=== PATIENT | male | born 1960 | race African-American/Black ===

== ENCOUNTER → 2016-06-03 | Outpatient (CLI) | payer OTHER ==
[~2016-06-03] MED LIST: ALBUTEROL SULFATE 0.083% NEB 2.5 MG/3 ML AMPUL NEB ONE
--- NOTE | 2016-06-05 09:20 | PULMONARY FUNCTION TEST ---
DATE OF SERVICE: 06/03/2016 THE VITAL CAPACITY IS SLIGHTLY DECREASED. THE EXPIRATORY FLOW RATES ARE MODERATELY DECREASED. THE FEV1/VC IS 54%, PREDICTED: 80% AFTER BRONCHODILATOR, EXPIRATORY FLOW RATES SHOW SIGNIFICANT IMPROVEMENT. IMPRESSION: GOOD PATIENT EFFORT. MODERATE OBSTRUCTIVE DEFECT. CC: JAMIE HERNANDEZ MD > [place]
== END ==
LOC: RT 13:01
PROVIDERS: ATTEND Family Medicine
DX: J44.9 Chronic obstructive pulmonary disease, unspecified (principal)
CPT/HCPCS: 94060; 94640; 94760

== ENCOUNTER 2016-11-27 09:16 | Emergency (ER) | payer MEDICAID, OTHER ==
--- NOTE | 2016-11-27 09:33 | ER Document Report ---
ED General - General Stated Complaint: CHEST PAIN, SHORTNESS OF BREATH Time Seen by Provider: 11/27/16 09:23 Mode of Arrival: Medic Information source: Patient Notes: 56-year-old male presents with complaints of sudden shortness of breath difficulty breathing, patient notes he fell on a lawnmower yesterday, went to the [facility] where he was found to be satting 77% on room air TRAVEL OUTSIDE OF THE [place] IN LAST 30 DAYS: No - HPI Onset: Yesterday Onset/Duration: Sudden Quality of pain: No pain Severity: Mild Pain Level: 1 Associated symptoms: Shortness of breath Exacerbated by: Denies Relieved by: Denies Similar symptoms previously: No Recently seen / treated by doctor: Yes - Related Data Allergies/Adverse Reactions: No Known Allergies Allergy (Verified 10/17/15 13:32) Past Medical History - Social History Smoking Status: Current Every Day Smoker Cigarette use (# per day): Yes Chew tobacco use (# tins/day): No Smoking Education Provided: Yes - Patient counselled regarding cessation for 4 minutes Family History: Reviewed & Not Pertinent - Past Medical History Cardiac Medical History: Reports: Hx Hypertension Pulmonary Medical History: Reports: Hx Asthma, Hx COPD, Hx Pneumonia GI Medical History: Reports: Hx Irritable Bowel Past Surgical History: Reports: Hx Abdominal Surgery - Immunizations Hx Diphtheria, Pertussis, Tetanus Vaccination: No Hx Pneumococcal Vaccination: 03/22/12 Review of Systems - Review of Systems Notes: REVIEW OF SYSTEMS: CONSTITUTIONAL : Denies fever, chills, or sweats. Denies recent illness. EENT: Denies eye, ear, throat, or mouth pain or symptoms. Denies nasal or sinus congestion or discharge. Denies throat, tongue, or mouth swelling or difficulty swallowing. CARDIOVASCULAR: Shortness of breath RESPIRATORY: Admits to chest pain GASTROINTESTINAL: Denies abdominal pain or distention. Denies nausea, vomiting , or diarrhea. Denies blood in vomitus, stools, or per rectum. Denies black, tarry stools. Denies constipation. GENITOURINARY: Denies difficulty urinating, painful urination, burning, frequency, blood in urine, or discharge. MUSCULOSKELETAL: Denies back or neck pain or stiffness. Denies joint pain or swelling. SKIN: Denies rash, lesions or sores. HEMATOLOGIC : Denies easy bruising or bleeding. LYMPHATIC: Denies swollen, enlarged glands. NEUROLOGICAL: Denies confusion or altered mental status. Denies passing out or loss of consciousness. Denies dizziness or lightheadedness. Denies headache. Denies weakness or paralysis or loss of use of either side. Denies problems with gait or speech. Denies sensory loss, numbness, or tingling. Denies seizures. PSYCHIATRIC: Denies anxiety or stress. Denies depression, suicidal ideation, or homicidal ideation. ALL OTHER SYSTEMS REVIEWED AND NEGATIVE. Dictation was performed using [employer] voice recognition software PHYSICAL EXAMINATION: GENERAL: Well-appearing, well-nourished and in no acute distress. HEAD: Atraumatic, normocephalic. EYES: Pupils equal round and reactive to light, extraocular movements intact, sclera anicteric, conjunctiva are normal. ENT: Nares patent, oropharynx clear without exudates. Moist mucous membranes. NECK: Normal range of motion, supple without lymphadenopathy LUNGS: Decreased breath sounds right upper lobe HEART: Regular rate and rhythm without murmurs ABDOMEN: Soft, nontender, nondistended abdomen. No guarding, no rebound. No masses appreciated. Musculoskeletal: Normal range of motion, no pitting or edema. No cyanosis. NEUROLOGICAL: Cranial nerves grossly intact. Normal speech, normal gait. Normal sensory, motor exams PSYCH: Normal mood, normal affect. SKIN: Warm, Dry, normal turgor, no rashes or lesions noted. Physical Exam - Vital signs Vitals: Pulse Ox 100 11/27/16 09:23 Course - Re-evaluation Re-evalutation: 11/27/16 09:32 Given 3 nitroglycerin patient for possible chf exacerbationon nonrebreather and is satting in the 90s now, 11/27/16 13:03 ct was consistent with emphysema pt was weaned off nonrebreather to initially nasal cannula and then was taken off of this completely 11/27/16 13:35 Was ambulated and satting 94% at the lowest. Patient also notes that he had a fishbone that irritated his throat last week and would like some medication for this we will start him on some Pepcid and anti-inflammatory will give him steroids and albuterol inhaler patient has been given strict return precautions since he had such a poor presentation initially Family member agrees with this plan After performing a Medical Screening Examination, I estimate there is LOW risk for ACUTE CORONARY SYNDROME, RESPIRATORY FAILURE, SEPSIS OR MENINGITIS, thus I consider the discharge disposition reasonable. I have reevaluated this patient multiple times and no significant life threatening changes are noted. The patient and I have discussed the diagnosis and risks, and we agree with discharging home with close follow-up. We also discussed returning to the Emergency Department immediately if new or worsening symptoms occur. We have discussed the symptoms which are most concerning (e.g., changing or worsening pain, trouble swallowing or breathing, neck stiffness, fever) that necessitate immediate return. - Vital Signs Vital signs: Temp Pulse Resp BP Pulse Ox 15 116/88 H 100 11/27/16 12:46 11/27/16 12:46 11/27/16 12:46 - Laboratory Result Diagrams: 11/27/16 09:30 11/27/16 10:25 Laboratory results interpreted by me: 11/27/16 11/27/16 09:30 10:25 RDW 14.6 H Potassium 5.2 H Carbon Dioxide 21 L BUN 28 H Creatinine 1.47 H Est GFR (Non-Af Amer) 49 L Creatine Kinase 222 H Discharge - Discharge Clinical Impression: COPD exacerbation, Encounter for smoking cessation counseling Condition: Stable Disposition: HOME, SELF-CARE Instructions: Chronic Obstructive Lung Disease ([facility]), Stop Smoking ([facility]) Additional Instructions: Follow up with your physician tomorrow for further care or return to the ED IMMEDIATELY if symptoms worsen or new concerns occur. If you cannot afford to follow up with your primary care physician a list of low cost clinics have been provided at the end of your discharge papers as well. Prescriptions: Famotidine [Pepcid 20 mg Tablet] 20 mg PO BID #30 tablet Naproxen 500 mg PO BID #20 tablet Prednisone [Deltasone 20 mg Tablet] 3 tab PO DAILY 5 Days
--- NOTE | 2016-11-27 09:44 | RADIOLOGY REPORT (SQ) ---
EXAM DESCRIPTION: CHEST SINGLE VIEW COMPLETED DATE/TIME: 11/27/2016 9:32 am REASON FOR STUDY: er 9 diff breathing COMPARISON: CT angio chest 06/17/2014 Chest films 12/10/2014, 02/11/2015 EXAM PARAMETERS: NUMBER OF VIEWS: One view. TECHNIQUE: Single frontal radiographic view of the chest acquired. RADIATION DOSE: NA LIMITATIONS: None. FINDINGS: LUNGS AND PLEURA: Obliquely oriented faint linear density at the right lung apex could be a focal scar. A tiny apical full or bleb could be present. Apical pneumothorax could not be exclude d. There is left apical pleural-parenchymal scarring. Review of prior CT 06/17/2014 demonstrated a thin walled cavity at the left lung apex. Follow-up CT recommended. Remainder of the lungs are hyperinflated and hyperlucent and free of focal infiltrates. No pleural e ffusion. MEDIASTINUM AND HILAR STRUCTURES: No masses. Contour normal. HEART AND VASCULAR STRUCTURES: Heart normal in size. Normal vasculature. BONES: No acute findings. HARDWARE: None in the chest. OTHER: Findings discussed with Dr. Bansal. IMPRESSION: Biapical pleural-parenchymal scarring. Right apical pneumothorax could not be excluded. Prior CT 06/17/2014 demonstrated a thin walled cavity in the left lung apex. Follow-up CT recommend ed. No acute infiltrates. TECHNICAL DOCUMENTATION: JOB ID: [id number]
[2016-11-27 09:45] LABS: ABSOLUTE BASOPHILS # (AUTO) 0.1 10^3/uL (0.0-0.2); ABSOLUTE EOSINOPHILS # (AUTO) 0.3 10^3/uL (0.0-0.6); BASOPHILS % (AUTO) 0.9 % (0-2); EOSINOPHILS % (AUTO) 3.5 % (0-6); HEMATOCRIT 42.6 % (37.9-51.0); HEMOGLOBIN 13.9 g/dL (13.5-17.0); HGB HCT DIFFERENCE -0.9; MEAN CORPUSCULAR HGB CONC 32.7 g/dL (32.0-36.0); MEAN CORPUSCULAR VOLUME 89 fl (80-97); RED CELL DISTRIBUTION WIDTH 14.6 % (11.5-14.0); SEGMENTED NEUTROPHILS % (AUTO) 63.6 % (42-78); WHITE BLOOD COUNT 9.5 10^3/uL (4.0-10.5)
--- NOTE | 2016-11-27 10:31 | RADIOLOGY REPORT (SQ) ---
EXAM DESCRIPTION: CTA CHEST COMPLETED DATE/TIME: 11/27/2016 9:48 am REASON FOR STUDY: sob COMPARISON: None. TECHNIQUE: CT scan of the chest performed using helical scanning technique with dynamic intravenous contrast injection. Images reviewed with lung, soft tissue and bone windows. Reconstructed coronal and sagittal MPR images reviewed. Additional 3 dimensional post-processing performed to develop Maximal Intensity Projection images (MO P). All images stored on PACS. All CT scanners at this facility use dose modulation, iterative reconstruction, and/or weight based d osing when appropriate to reduce radiation dose to as low as reasonably achievable (ALARA). [facility]: Dose Right [facility]: CareDose [facility]: Dose Right [facility]: Teradose 4D [facility]: [employer] CONTRAST TYPE AND DOSE: contrast/concentration: Isovue 370.00 mg/ml; Total Contrast Delivered: 62.0 ml; Total Saline Delivered: 80.0 ml RENAL FUNCTION: Testis not performed by order of the emergency room physician. RADIATION DOSE: 30.85 . LIMITATIONS: None. FINDINGS: LUNGS AND PLEURA: Extensive emphysematous changes seen in the upper lobes including centri lobular changes and paraseptal changes. There is pleural/parenchymal scarring in the left apex. The re is no pulmonary infiltrate or pleural effusion. There is no mass. AORTA AND GREAT VESSELS: No aneurysm or dissection. HEART: No pericardial effusion. PULMONARY ARTERIES: No emboli visualized in the main pulmonary arteries or the segmental branches. HILAR AND MEDIASTINAL STRUCTURES: No identified masses or abnormal nodes. HARDWARE: None in the chest. UPPER ABDOMEN: No significant findings. Limited exam. THYROID AND OTHER SOFT TISSUES: No masses. No adenopathy. BONES: No acute or significant finding. 3D MIPS: Confirm above findings. OTHER: No other significant finding. IMPRESSION: 1. There is no evidence of pulmonary emboli. 2. There is pulmonary emphysema and there is pleural/parenchymal scarring as described. TECHNICAL DOCUMENTATION: JOB ID: [id number] Quality ID # [id number]: Final reports with documentation of one or more dose reduction techniques (e.g., Au tomated exposure control, adjustment of the mA and/or kV according to patient size, use of iterative reconstruction technique) 2010 [employer]- All Rights Reserved
[2016-11-27] MEDS ORDERED: IPRATROPIUM/ALBUTEROL 0.5-2.5 MG/3 ML AMPUL NEB ONE ×2 (10:35)
[2016-11-27 11:07] LABS: ALANINE AMINOTRANSFERASE 28 U/L (21-72); ALBUMIN 4.2 g/dL (3.5-5.0); ALKALINE PHOSPHATASE 83 U/L (38-126); ANION GAP 13 (5-19); ASPARTATE AMINO TRANSFERASE 33 U/L (17-59); BILIRUBIN,DIRECT 0.4 mg/dL (0.0-0.4); BLOOD UREA NITROGEN 28 mg/dL (7-20); CALCIUM 9.3 mg/dL (8.4-10.2); CARBON DIOXIDE 21 mmol/L (22-30); CHLORIDE 106 mmol/L (98-107); CREATINE KINASE 222 U/L (55-170); CREATININE RESULT 1.47 mg/dL (0.52-1.25); GLUCOSE 83 mg/dL (75-110); POTASSIUM 5.2 mmol/L (3.6-5.0); SODIUM 140.2 mmol/L (137-145)
[2016-11-27 11:25] LABS: CREATINE KINASE MB 1.65 ng/mL (<4.55)
[2016-11-27 11:27] LABS: TROPONIN I < 0.012 ng/mL
[2016-11-27 13:59] VITALS: BP 138/93
[2016-11-27] MEDS ORDERED: ALBUTEROL SULFATE HFA (90 MCG/PUFF) 8 GM MDI (1 MDI/ER DISP) IH SCH (14:00)
--- NOTE | 2016-11-27 20:54 | EKG REPORT ---
SEVERITY:- ABNORMAL ECG - SINUS RHYTHM ATRIAL PREMATURE COMPLEX BORDERLINE LEFT AXIS DEVIATION CONSIDER ANTEROSEPTAL INFARCT NONSPECIFIC T ABNORMALITIES, LATERAL LEADS : Confirmed by: Wanda Chapa 27-Nov-2016 20:53:39
== END 2016-11-27 14:01 | disposition home or self-care (01) ==
LOC: ER 09:16
DX: J44.1 Chronic obstructive pulmonary disease with (acute) exacerbation (principal); R06.02 Shortness of breath; R07.9 Chest pain, unspecified; R09.89 Other specified symptoms and signs involving the circulatory and respiratory systems; I10 Essential (primary) hypertension; F17.210 Nicotine dependence, cigarettes, uncomplicated; Z71.6 Tobacco abuse counseling
CPT/HCPCS: 93005; 99406; 94640; 99285; 36415; 82553; 82550; 85025; 80053; 84484; 71010; 71275; 93010; J3490; J7620

== ENCOUNTER → 2017-03-02 | Outpatient (CLI) | payer MEDICAID, OTHER ==
--- NOTE | 2017-03-02 14:38 | RADIOLOGY REPORT (SQ) ---
EXAM DESCRIPTION: CHEST PA/LAT COMPLETED DATE/TIME: 03/02/2017 2:17 pm REASON FOR STUDY: COUGH (R05), SOB (R06.02) COMPARISON: 11/27/2016 NUMBER OF VIEWS: Two view. TECHNIQUE: Frontal and lateral radiographic views of the chest acquired. LIMITATIONS: None. FINDINGS: LUNGS AND PLEURA: Possible increasing opacity left apex since the previous chest x-ray al though poorly defined. Mass not identified on the previous CT of 11/27/2016. Repeat non contrasted C T of the chest may be a consideration to exclude pathology developing at this level. Hyperinflation secondary to COPD again noted. No pleural effusions. MEDIASTINUM AND HILAR STRUCTURES: No masses or contour abnormalities. HEART AND VASCULATURE: Heart normal size. No evidence for failure. BONY STRUCTURES: No acute findings. HARDWARE: None. OTHER: No other significant finding. IMPRESSION: Possible increasing density left apex when compared to the previous chest x-ray of 2016. Mass or other pathology not identified on the CT of the chest performed at that time. Repeat non contrasted CT of the chest may be a consideration to exclude developing pathology since the previ ous examination. TECHNICAL DOCUMENTATION: JOB ID: [id number] [employer]- All Rights Reserved
== END ==
LOC: RAD 13:59
PROVIDERS: ATTEND Physician Assistant Surgical
DX: R05 Cough (principal); R06.02 Shortness of breath
CPT/HCPCS: 71020

== ENCOUNTER → 2017-03-08 | Outpatient (CLI) | payer MEDICAID, OTHER ==
--- NOTE | 2017-03-08 13:31 | RADIOLOGY REPORT (SQ) ---
EXAM DESCRIPTION: CT CHEST WITHOUT COMPLETED DATE/TIME: 03/08/2017 11:27 am REASON FOR STUDY: OTHER NONSPECIFIC ABN FINDING OF LUNG FIELD (R91.8), SOB (R06.02), COUGH (R R91.8 OTHER NONSPECIFIC ABNORMAL FINDING OF LUNG FIELD R06.02 SHORTNESS OF BREATH R05 COUGH COMPARISON: 11/27/2016 TECHNIQUE: CT scan performed of the chest without intravenous contrast. Images reviewed with lung, soft tissue and bone windows. Reconstructed coronal and sagittal MPR images reviewed. All images st ored on PACS. All CT scanners at this facility use dose modulation, iterative reconstruction, and/or weight based d osing when appropriate to reduce radiation dose to as low as reasonably achievable (ALARA). [facility]: Dose Right [facility]: CareDose [facility]: Dose Right [facility]: Teradose 4D [facility]: Smart [employer] RADIATION DOSE: Up-to-date CT equipment and radiation dose reduction techniques were employed. CTDIv ol: 5.4 mGy. DLP: 233 mGy-cm. mGy. LIMITATIONS: No technical limitations. FINDINGS: LUNGS AND PLEURA: Once again emphysematous changes are present. There is pleural/parenchy mal scarring in the left upper lobe. There is an 18 x 13 mm area of confluent density the left upper lobe seen best on image 13 series 4. On prior study this area has an appearance of somewhat thick-w alled pneumatocele. A 3 mm nodule is present on image 18 series 4 in the left upper lobe. HILAR AND MEDIASTINAL STRUCTURES: There are some nonspecific mediastinal nodes. HEART AND VASCULAR STRUCTURES: No aneurysm. No pericardial effusion. UPPER ABDOMEN: No significant findings. Limited exam. THYROID AND OTHER SOFT TISSUES: No masses. No adenopathy. BONES: No significant finding. HARDWARE: None in the chest. OTHER: No other significant findings. IMPRESSION: 1. Pulmonary emphysema. Pleural/ parenchymal scarring in the left upper lobe. 2. There is an area of confluent density as described. This may represent an infected pneumatocele. A developing mass cannot be excluded. Correlate clinically atypical infection. Consider PET-CT. 3. 3 left upper lobe nodule. TECHNICAL DOCUMENTATION: JOB ID: [id number] Quality ID # [id number]: Final reports with documentation of one or more dose reduction techniques (e.g., Au tomated exposure control, adjustment of the mA and/or kV according to patient size, use of iterative reconstruction technique) 2010 [employer]- All Rights Reserved
== END ==
LOC: RAD 10:12
PROVIDERS: ATTEND Internal Medicine Gastroenterology
DX: R91.8 Other nonspecific abnormal finding of lung field (principal); R06.02 Shortness of breath; R05 Cough; R63.4 Abnormal weight loss
CPT/HCPCS: 71250

== ENCOUNTER 2017-06-17 02:52 | Emergency (ER) | payer MEDICAID, OTHER ==
[2017-06-17] MEDS ORDERED: METHYLPREDNISOLONE INJ 125 MG/2 ML SDV ONE (03:04)
[2017-06-17] MEDS ORDERED: METHYLPREDNISOLONE INJ 125 MG/2 ML SDV IV ONE (03:04)
[2017-06-17] MEDS ORDERED: DIPHENHYDRAMINE HCL 50 MG/ML VIAL IV ONE (03:04)
[2017-06-17] MEDS ORDERED: FAMOTIDINE INJ/PF 20 MG/2 ML SDV IV ONE (03:05)
[2017-06-17] MEDS ORDERED: MAGNESIUM SULFATE/D5W 1 GM/100 ML RTUPB IV ONE (03:05)
[2017-06-17 03:14] LABS: ABSOLUTE NEUT (AUTO) 3.6 10^3/uL (1.7-8.2); BASOPHILS % (AUTO) 1.1 % (0-2); EOSINOPHILS % (AUTO) 6.6 % (0-6); HEMATOCRIT 39.6 % (37.9-51.0); HEMOGLOBIN 13.5 g/dL (13.5-17.0); MEAN CORPUSCULAR HEMOGLOBIN 29.7 pg (27.0-33.4); MEAN CORPUSCULAR HGB CONC 34.1 g/dL (32.0-36.0); MEAN CORPUSCULAR VOLUME 87 fl (80-97); MONOCYTES % (AUTO) 11.1 % (3-13); PLATELET COUNT 221 10^3/uL (150-450); RED BLOOD COUNT 4.55 10^6/uL (4.35-5.55); RED CELL DISTRIBUTION WIDTH 14.6 % (11.5-14.0); SEGMENTED NEUTROPHILS % (AUTO) 44.2 % (42-78); TOTAL CELLS COUNTED % (AUTO) 100 %; WHITE BLOOD COUNT 8.2 10^3/uL (4.0-10.5)
[2017-06-17 03:15] LABS: ABSOLUTE BASOPHILS # (AUTO) 0.1 10^3/uL (0.0-0.2); ABSOLUTE EOSINOPHILS # (AUTO) 0.5 10^3/uL (0.0-0.6); ABSOLUTE MONOCYTES (AUTO) 0.9 10^3/uL (0.1-1.4)
[2017-06-17] MEDS ORDERED: IPRATROPIUM/ALBUTEROL 0.5-2.5 MG/3 ML AMPUL NEB ONE (03:15)
[2017-06-17 03:30] LABS: ALANINE AMINOTRANSFERASE 24 U/L (21-72); ALBUMIN 4.5 g/dL (3.5-5.0); ALKALINE PHOSPHATASE 73 U/L (38-126); ANION GAP 12 (5-19); ASPARTATE AMINO TRANSFERASE 26 U/L (17-59); BILIRUBIN,TOTAL 0.3 mg/dL (0.2-1.3); BLOOD UREA NITROGEN 29 mg/dL (7-20); CALCIUM 9.8 mg/dL (8.4-10.2); CARBON DIOXIDE 25 mmol/L (22-30); CHLORIDE 105 mmol/L (98-107); GLUCOSE 97 mg/dL (75-110); SODIUM 141.8 mmol/L (137-145)
[2017-06-17 03:31] LABS: BILIRUBIN,DIRECT 0.3 mg/dL (0.0-0.4); TOTAL PROTEIN 7.9 g/dL (6.3-8.2)
--- NOTE | 2017-06-17 03:34 | ER Document Report ---
ED General - General Mode of Arrival: Ambulatory Information source: Patient TRAVEL OUTSIDE OF THE [place] IN LAST 30 DAYS: No - HPI Onset: Just prior to arrival Onset/Duration: Sudden Quality of pain: No pain Severity: None Pain Level: Denies Associated symptoms: denies: Chest pain, Fever, Shortness of breath Exacerbated by: Denies Relieved by: Denies Similar symptoms previously: No Recently seen / treated by doctor: No <TOMASA TORRES - Last Filed: 06/17/17 04:51> <RICCARDO GUADALUPE - Last Filed: 06/17/17 10:58> - General Chief Complaint: Allergic Reaction Stated Complaint: POSSIBLE ALLERGIC REACTION Time Seen by Provider: 06/17/17 03:04 Notes: This is a 56-year-old man brought into the emergency room for swelling around the left mouth. Patient does have a history of COPD and his daughter stated that she noticed the swelling as soon as he came home. The patient states he awoke from sleep and had left facial swelling. There is no new medicines. The patient does take lisinopril. He started a new and sure shake to increase weight and has been having that for the past 2 days. He denies any chest pain. He denies any significant shortness of breath. He denies any difficulty swallowing at this time. (TOMASA TORRES) - Related Data Allergies/Adverse Reactions: DIAMOND Inhibitors Allergy (Severe, Verified 06/17/17 04:07) Angioneurotic Edema lisinopril Allergy (Severe, Verified 06/17/17 04:07) Angioneurotic Edema Past Medical History - General Information source: Patient - Social History Smoking Status: Never Smoker Cigarette use (# per day): No Chew tobacco use (# tins/day): No Frequency of alcohol use: None Drug Abuse: None Lives with: Family Family History: Reviewed & Not Pertinent Patient has suicidal ideation: No Patient has homicidal ideation: No - Past Medical History Cardiac Medical History: Reports: Hx Hypertension Pulmonary Medical History: Reports: Hx Asthma, Hx COPD, Hx Pneumonia GI Medical History: Reports: Hx Irritable Bowel Past Surgical History: Reports: Hx Abdominal Surgery - Immunizations Hx Diphtheria, Pertussis, Tetanus Vaccination: No Hx Pneumococcal Vaccination: 03/22/12 <TOMASA TORRES - Last Filed: 06/17/17 04:51> Review of Systems - Review of Systems Constitutional: denies: Chills, Fever EENT: See HPI Cardiovascular: No symptoms reported Respiratory: No symptoms reported Gastrointestinal: No symptoms reported Genitourinary: No symptoms reported Male Genitourinary: No symptoms reported Musculoskeletal: No symptoms reported Skin: No symptoms reported Hematologic/Lymphatic: No symptoms reported Neurological/Psychological: No symptoms reported <TOMASA TORRES - Last Filed: 06/17/17 04:51> Physical Exam <TOMASA TORRES - Last Filed: 06/17/17 04:51> <RICCARDO GUADALUPE - Last Filed: 06/17/17 10:58> - Vital signs Vitals: Resp Pulse Ox 24 H 100 06/17/17 02:57 06/17/17 02:57 Notes: Physical exam: GENERAL: 56-year-old man, alert and oriented 3, no acute distress HEAD: Atraumatic, normocephalic. EYES: Pupils equal round and reactive to light, extraocular movements intact, sclera anicteric, conjunctiva are normal. ENT: Moist mucous membranes. Patient does have swelling around the left side of the mouth in both upper and lower lips. He can stick out his tongue and there is no tongue swelling. There is no stridor. He is able to swallow without difficulty. No obvious uvula swelling. NECK: Normal range of motion, supple without obvious mass. No stridor LUNGS: Breath sounds clear to auscultation bilaterally and equal. No wheezes rales or rhonchi. HEART: Regular rate and rhythm without murmurs, rubs or gallops. ABDOMEN: Soft, normoactive bowel sounds. No tenderness to palpation. No guarding, no rebound. No masses appreciated. EXTREMITIES: Normal range of motion, no pitting or edema. No clubbing or cyanosis. NEUROLOGICAL: Cranial nerves II through XII grossly intact. Normal speech, moving all extremities. PSYCH: Normal mood, normal affect. SKIN: Warm, Dry, normal turgor, no rashes or lesions noted. (JOANNETOMASA GOMES) Course - Laboratory Result Diagrams: 06/17/17 03:00 06/17/17 03:00 - Diagnostic Test Radiology reviewed: Image reviewed, Reports reviewed - Chest x-ray shows COPD, no infiltrates - EKG Interpretation by Md Rate: Normal Rhythm: NSR - EKG shows normal sinus rhythm with a ventricular rate of 70, no acute ST-T wave changes <BRIANTOMASA - Last Filed: 06/17/17 04:51> - Laboratory Result Diagrams: 06/17/17 03:00 06/17/17 03:00 <RICCARDO GUADALUPE - Last Filed: 06/17/17 10:58> - Re-evaluation Re-evalutation: 06/17/17 03:53 Patient was given IV Solu-Medrol, IV Benadryl, IV Pepcid, IV magnesium and a dual neb. He is not complaining of any shortness of breath. It does not appear that the face and lip swelling has progressed. He is able to open up his mouth and his uvula looks good and his posterior pharynx looks good. He can lift up his tongue and I do not see any swelling to the floor of the mouth. I do not appreciate any tongue edema. We will continue to observe. 06/17/17 04:51 The patient continues to be comfortable. He is able open his mouth bigger than before. He denies any trouble swallowing. I did discuss the case with Dr. Lemons but there are no ICU or stepdown beds at this time. We will continue to watch the patient in the ER. I discussed this with his daughter. (TOMASA TORRES) - Vital Signs Vital signs: Temp Pulse Resp BP Pulse Ox 98.1 F 12 116/95 H 97 06/17/17 03:15 06/17/17 10:01 06/17/17 10:00 06/17/17 10:01 - Laboratory Laboratory results interpreted by me: 06/17/17 06/17/17 03:00 03:00 RDW 14.6 H Eosinophils % 6.6 H BUN 29 H Creatinine 1.53 H Est GFR ( Amer) 57 L Est GFR (Non-Af Amer) 47 L Discharge <TOMASA TORRES - Last Filed: 06/17/17 04:51> <RICCARDO GUADALUPE - Last Filed: 06/17/17 10:58> - Discharge Clinical Impression: Angioedema Qualifiers: Encounter type: initial encounter Qualified Code(s): T78.3XXA - Angioneurotic edema, initial encounter Condition: Stable Disposition: HOME, SELF-CARE Additional Instructions: Recommend stop taking the Lisinopril-HTCZ. This reaction is often due to the Lisinopril which is a class of medicine called DIAMOND-Inhibitors. It is best to avoid this class of medications. Prescriptions: Hydrochlorothiazide [Hydrodiuril 25 mg Tablet] 25 mg PO QAM #30 tablet Referrals: ERIBERTO NASCIMENTO DO [Primary Care Provider] - Follow up in 3-5 days (To the emergency department if you have any concerns. Please stop taking the lisinopril as already stated. The lisinopril was also combined with a antihypertensive known as hydrochlorothiazide which I have written for separately in a prescription. Take as prescribed.)
--- NOTE | 2017-06-17 04:11 | RADIOLOGY REPORT (SQ) ---
EXAM DESCRIPTION: CHEST SINGLE VIEW CLINICAL HISTORY: 56 years, Male, facial swelling COMPARISON: 03/02/2017. CT, 03/08/2017, report only. NUMBER OF VIEWS: 1 LIMITATIONS: None. FINDINGS: Moderate emphysematous hyperinflation, small biapical scar, normal cardiac silhouette, atherosclerosis, and small bridging osteophytes at the thoracolumbar junction. IMPRESSION: No acute cardiopulmonary findings. 2010 [employer] All Rights Reserved
[2017-06-17] MEDS ORDERED: NITROGLYCERIN 2% OINTMENT 1 GM PACKET TP ONE (04:45)
--- NOTE | 2017-06-17 06:30 | ER Document Report ---
Doctor's Note Notes: 06/17/17 06:28 Patient was signed out to me by Dr. Wright. I have reviewed the chart. Patient is resting quietly in his bed I have observed him. Vital signs are stable. We will continue to monitor. 06/17/17 09:01 Is going to examine the patient. His states that he still feels a little bit of swelling in the back of his throat. Patient's throat appears clear he is tolerating water without difficulty vital signs are stable. I will continue to observe the patient. 06/17/17 10:54 I have seen the patient multiple times throughout his stay in the emergency department since my shift began at 6 AM. Patient has remained hemodynamically stable with a pulse ox within normal limits on room air. He is tolerating p.o. fluids without difficulty. He ambulated up and down the hallway without any distress. Patient will discontinue the lisinopril he was also on HCTZ and a combination pill and I will place him on HCTZ alone. I will increase the dose. Patient is discharged home with a known allergy to lisinopril as we discussed. He is to follow-up this primary medical doctor in the next day or 2. He is to return to the emergency department if he has worsening symptoms. He was discharged home in stable condition in the care of his family
[2017-06-17 11:14] VITALS: BP 116/94
--- NOTE | 2017-06-17 17:06 | EKG REPORT ---
SEVERITY:- ABNORMAL ECG - SINUS RHYTHM ATRIAL PREMATURE COMPLEX CONSIDER ANTEROSEPTAL INFARCT : Confirmed by: Wanda Chapa 17-Jun-2017 17:05:41
== END 2017-06-17 11:14 | disposition home or self-care (01) ==
LOC: ER 02:52
DX: T78.3XXA Angioneurotic edema, initial encounter (principal); J44.9 Chronic obstructive pulmonary disease, unspecified; I10 Essential (primary) hypertension
CPT/HCPCS: 93005; 94640; 99284; 96374; 96375; 36415; 83735; 85025; 80053; 71045; 93010; J3490; J1200; J2930; J3475; S0028; J7620

== ENCOUNTER → 2017-06-29 | Outpatient (CLI) | payer MEDICAID ==
--- NOTE | 2017-06-29 12:30 | RADIOLOGY REPORT (SQ) ---
EXAM DESCRIPTION: CT CHEST WITHOUT COMPLETED DATE/TIME: 06/29/2017 8:47 am REASON FOR STUDY: R91.8 OTHER NONSPECIFIC ABNORMAL FINDING OF LUNG FIELD R91.8 OTHER NONSPECIFIC AB NORMAL FINDING OF LUNG FIELD COMPARISON: Chest x-ray dated 06/17/[address] scan dated February 2017 TECHNIQUE: CT scan performed of the chest without intravenous contrast. Images reviewed with lung, soft tissue and bone windows. Reconstructed coronal and sagittal MPR images reviewed. All images st ored on PACS. All CT scanners at this facility use dose modulation, iterative reconstruction, and/or weight based d osing when appropriate to reduce radiation dose to as low as reasonably achievable (ALARA). [facility]: Dose Right [facility]: CareDose [facility]: Dose Right [facility]: Teradose 4D [facility]: [employer] RADIATION DOSE: CT Rad equipment meets quality standard of care and radiation dose reduction techniq ues were employed. CTDIvol: 3.2 mGy. DLP: 142 mGy-cm. mGy. LIMITATIONS: No technical limitations. FINDINGS: LUNGS AND PLEURA: Chronic appearing pleuroparenchymal changes are again identified the farhad g apices which appears stable. The previously described 3 mm nodule in the left upper lobe is not id entified on the current study presumably related to the small size of the nodule in slight difference in plane of section. The previously described bullous and emphysematous changes appears stable. No acute consolidations or pleural effusions are identified. No pneumothorax is seen HILAR AND MEDIASTINAL STRUCTURES: The previously described nonspecific mediastinal lymph nodes are ag ain identified and appears stable. HEART AND VASCULAR STRUCTURES: No aneurysm. No pericardial effusion. UPPER ABDOMEN: No significant findings. Limited exam. THYROID AND OTHER SOFT TISSUES: No masses. No adenopathy. BONES: No significant finding. HARDWARE: None in the chest. OTHER: No other significant findings. IMPRESSION: No significant interval change as compared to the previous study. The previously descri bed chronic appearing pleuroparenchymal changes in the lung apices appears stable. The previously de scribed bullous and emphysematous changes appears stable. No acute consolidations or pleural effusio ns. Other findings as noted above TECHNICAL DOCUMENTATION: JOB ID: [id number] Quality ID # [id number]: Final reports with documentation of one or more dose reduction techniques (e.g., Au tomated exposure control, adjustment of the mA and/or kV according to patient size, use of iterative reconstruction technique) 2010 [employer]- All Rights Reserved
== END ==
LOC: RAD 08:53
PROVIDERS: ATTEND Internal Medicine Critical Care Medicine
DX: R91.8 Other nonspecific abnormal finding of lung field (principal)
CPT/HCPCS: 71250

== ENCOUNTER → 2017-07-14 | Outpatient (CLI) | payer MEDICAID ==
[2017-07-14 13:31] LABS: HEMOGLOBIN 13.7 g/dL (13.5-17.0); MEAN CORPUSCULAR HEMOGLOBIN 29.1 pg (27.0-33.4); MEAN CORPUSCULAR HGB CONC 33.3 g/dL (32.0-36.0); MEAN CORPUSCULAR VOLUME 87 fl (80-97); PLATELET COUNT 231 10^3/uL (150-450); RED CELL DISTRIBUTION WIDTH 14.5 % (11.5-14.0); WHITE BLOOD COUNT 5.2 10^3/uL (4.0-10.5)
[2017-07-14 13:36] LABS: INTERNATIONAL RATION (INR) 0.94; PROTHROMBIN TIME 13.2 SEC (11.4-15.4)
[2017-07-14 13:37] LABS: PARTIAL THROMBOPLASTIN TIME 27.2 SEC (23.5-35.8)
[2017-07-14 13:47] LABS: ANION GAP 11 (5-19); BLOOD UREA NITROGEN 22 mg/dL (7-20); CALCIUM 9.9 mg/dL (8.4-10.2); CARBON DIOXIDE 24 mmol/L (22-30); CHLORIDE 110 mmol/L (98-107); GLUCOSE 60 mg/dL (75-110); POTASSIUM 5.1 mmol/L (3.6-5.0); SODIUM 145.3 mmol/L (137-145)
[2017-07-14 13:55] LABS: ABSOLUTE LYMPHOCYTES# (MANUAL) 2.1 10^3/uL (0.5-4.7); ABSOLUTE MONOCYTES # (MANUAL) 0.5 10^3/uL (0.1-1.4); ABSOLUTE NEUTROPHILS# (MANUAL) 2.4 10^3/uL (1.7-8.2); BASOPHILS % (MANUAL) 1 % (0-2); EOSINOPHILS % (MANUAL) 3 % (0-6); HYPOCHROMASIA SLIGHT; LYMPHOCYTES % (MANUAL) 37 % (13-45); MONOCYTES % (MANUAL) 9 % (3-13); SEGMENTED NEUTROPHILS % (MAN) 47 % (42-78); TOTAL CELLS COUNTED 100
[2017-07-14 13:56] LABS: PLATELET COMMENT ADEQUATE
== END ==
LOC: OD 12:37
PROVIDERS: ATTEND Internal Medicine Critical Care Medicine
DX: J43.9 Emphysema, unspecified (principal); R06.09 Other forms of dyspnea; R63.4 Abnormal weight loss; R91.8 Other nonspecific abnormal finding of lung field; R91.1 Solitary pulmonary nodule; Z72.0 Tobacco use; J98.4 Other disorders of lung
CPT/HCPCS: 36415; 80048; 85025; 85610; 85730

== ENCOUNTER 2017-07-15 06:13 | Day surgery (SDC) | payer MEDICAID ==
[~2017-07-15 06:13] MED LIST changes: -ALBUTEROL SULFATE 0.083% NEB 2.5 MG/3 ML AMPUL NEB ONE; +DEXTROSE 5%-1/2 NORMAL SALINE 1,000 ML IV PRN; +DEXTROSE 5%-WATER 1000 ML 1,000 ML IV PRN
[2017-07-15 06:50] LABS: HEMATOCRIT 38.3 % (37.9-51.0); HEMOGLOBIN 13.1 g/dL (13.5-17.0); MEAN CORPUSCULAR HGB CONC 34.2 g/dL (32.0-36.0); MEAN CORPUSCULAR VOLUME 88 fl (80-97); PLATELET COUNT 231 10^3/uL (150-450); RED BLOOD COUNT 4.37 10^6/uL (4.35-5.55); RED CELL DISTRIBUTION WIDTH 14.4 % (11.5-14.0); WHITE BLOOD COUNT 7.2 10^3/uL (4.0-10.5)
[2017-07-15 07:04] LABS: INTERNATIONAL RATION (INR) 0.89; PARTIAL THROMBOPLASTIN TIME 27.9 SEC (23.5-35.8); PROTHROMBIN TIME 12.7 SEC (11.4-15.4)
[2017-07-15 07:07] LABS: ANION GAP 12 (5-19); BLOOD UREA NITROGEN 24 mg/dL (7-20); CALCIUM 9.2 mg/dL (8.4-10.2); CARBON DIOXIDE 24 mmol/L (22-30); CHLORIDE 110 mmol/L (98-107); GLUCOSE 89 mg/dL (75-110); POTASSIUM 4.3 mmol/L (3.6-5.0); SODIUM 145.5 mmol/L (137-145)
[2017-07-15] MEDS ORDERED: EPINEPHRINE INJ/PF 1 MG/1 ML AMPULE ONE (07:27)
[2017-07-15] MEDS ORDERED: LIDOCAINE 2% JELLY 30 ML TUBE ONE (07:27)
[2017-07-15] MEDS ORDERED: LIDOCAINE 2% INJ (20 MG/ML) 20 ML MDV ONE (07:27)
[2017-07-15] MEDS ORDERED: NALOXONE HCL INJ/PF 0.4 MG/1 ML SDV ONE (07:27)
[2017-07-15] MEDS ORDERED: EPINEPHRINE INJ 1 MG/10 ML DISP.SYRIN ONE (07:28)
[2017-07-15] MEDS ORDERED: FLUMAZENIL INJ 0.5 MG/5 ML VIAL ONE (07:28)
[2017-07-15] MEDS ORDERED: MIDAZOLAM 2 MG/2 ML INJ ONE (07:28)
[2017-07-15] MEDS: MIDAZOLAM 2 MG/2 ML INJ ONE ×9 (08:45→09:00)
[2017-07-15] MEDS: FENTANYL CITRATE INJ/PF 100 MCG/2 ML AMPUL ONE ×3 (08:49→08:55)
--- NOTE | 2017-07-15 10:03 | OPERATIVE REPORT E ---
Operative Report NAME: RAMANDEEP BRITTON : 1960 AGE: 56Y DATE OF SURGERY: 07/15/2017 ROOM: INDICATIONS: Patient is a 56-year-old -[place] male who is presenting with left upper lobe nodule, for the last several months with chronic cough. Patient underwent flexible bronchoscopy today. Consent was obtained from the patient. Patient verbalized understanding of the indications,risks and potential complications of the procedure. SURGEON: GEORGETTE BEDOLLA M.D. PROCEDURE: Patient was connected to the base engineer, pulse oximetry, respiratory monitor, and blood pressure monitor. Then, 2% lidocaine solution 5 mL was given via nebulizer and 2% lidocaine solution 3 mL was given through atomizer applied to the posterior oropharyngeal wall. Then, 2% lidocaine gel was applied using cotton swab on the tonsillopharyngeal area as well. Flexible bronchoscope was inserted through the mouthguard. Versed was given at increments of 0.5 mg to a total dose of 4.5 mg. Fentanyl was given in increments of 25 mcg for a total dose of 75 mcg. Aliquots of 1% lidocaine solution was given through the bronchoscope and the flexible bronchoscope was inserted and passed through the vocal cords,trachea, main stem bronchi, and the segmental bronchi. The vocal cords appeared normal. There were no lesions noted. The oropharyngeal area appeared normal. Trachea appeared normal. Lucero was sharp at midline. Right main stem bronchus appeared normal. Right upper lobe bronchi appeared normal. Right middle lobe bronchi medial and lateral appeared normal. The right lower lobe bronchi anterior, posterior, lateral, medial, and superior bronchi appeared normal. No lesions noted. Left main stem bronchi appeared normal. Left upper lobe bronchi, anterior, posterior, and lingular superior, inferior and left lower lobe anteromedial, lateral, posterior, and superior basal bronchi appeared normal. No lesions noted. Bronchial washing was performed on both lungs. Bronchoalveolar lavage was performed on the left upper lobe anterior bronchial pulmonary segment bronchus. Some bleeding was noted following the bronchoalveolar lavage, which resolved spontaneously after applying cold saline solution. Bronchial washing was performed more on the left upper lobe. There was no apparent bleeding at the termination of the procedure. Patient tolerated the procedure well. Bronchoalveolar lavage will be sent for cytology and bronchial washing will be sent for cytology and AFB fungal and bacterial cultures and smears. Pulmonary clinic follow up in 1 week. DICTATING PHYSICIAN: GEORGETTE BEDOLLA MD,REBEKAH,MPH [id number] PHY#: [id number] ID: [id number] JOB#: [id number] ACCT: [id number] cc:GEORGETTE BEDOLLA M.D. > [facility] HOSPITALJaycee
--- NOTE | 2017-07-15 10:51 | RADIOLOGY REPORT (SQ) ---
EXAM DESCRIPTION: CHEST SINGLE VIEW COMPLETED DATE/TIME: 07/15/2017 10:25 am REASON FOR STUDY: POST BRONCH COMPARISON: 06/17/2017 EXAM PARAMETERS: NUMBER OF VIEWS: One view. TECHNIQUE: Single frontal radiographic view of the chest acquired. RADIATION DOSE: NA LIMITATIONS: None. FINDINGS: LUNGS AND PLEURA: No opacities, masses or pneumothorax. No pleural effusion. Again there is evidence for obstructive lung disease P MEDIASTINUM AND HILAR STRUCTURES: No masses. Contour normal. HEART AND VASCULAR STRUCTURES: Heart normal in size. Normal vasculature. BONES: No acute findings. HARDWARE: None in the chest. OTHER: No other significant finding. IMPRESSION: No significant interval change. No acute findings. Other findings as noted above TECHNICAL DOCUMENTATION: JOB ID: [id number]- All Rights Reserved
[2017-07-15 11:22] LABS: FLUID APPEARANCE CLOUDY; FLUID SOURCE LUNG; FLUID TYPE BRONCHIAL WASH; FLUID VISCOSITY MODERATELY VISCOUS
[2017-07-15 11:32] VITALS: BP 146/99
== END 2017-07-15 11:30 | disposition home or self-care (01) ==
LOC: OROUT 06:13
PROVIDERS: ATTEND Internal Medicine Critical Care Medicine
PROC: 0B9M8ZX Drainage of Bilateral Lungs, Via Natural or Artificial Opening Endoscopic, Diagnostic (ICD-10-PCS; 2017-07-15)
PROC: 0B9G8ZX Drainage of Left Upper Lung Lobe, Via Natural or Artificial Opening Endoscopic, Diagnostic (ICD-10-PCS; principal; 2017-07-15 08:00)
DX: R91.1 Solitary pulmonary nodule (principal); R05 Cough; J43.9 Emphysema, unspecified; F17.210 Nicotine dependence, cigarettes, uncomplicated
CPT/HCPCS: 31624; 36415; 87070; 87205; 87206; 87116; 87101; 85027; 85610; 85730; 89050; 80048; 84484; 87015; 88162; 88104 ×2; 71045; J2250; J3490 ×2; J3010; J0171; J2310

== ENCOUNTER 2017-07-24 07:16 | Inpatient (IN) | payer MEDICAID ==
[2017-07-24] MEDS ORDERED: METHYLPREDNISOLONE INJ 125 MG/2 ML SDV IV ONE (07:30)
[2017-07-24] MEDS ORDERED: DIPHENHYDRAMINE HCL 50 MG/ML VIAL IV ONE (07:31)
[2017-07-24] MEDS ORDERED: FAMOTIDINE INJ/PF 20 MG/2 ML SDV IV ONE (07:31)
[2017-07-24] MEDS ORDERED: NORMAL SALINE 1000 ML 1,000 ML IV ONE (07:31)
--- NOTE | 2017-07-24 07:32 | ER Document Report ---
ED Allergic Reaction - General Stated Complaint: POSSIBLE ALLERGIC REACTION Time Seen by Provider: 07/24/17 07:19 Notes: 57-year-old -[place] male to the emergency department chief complaint of lips swelling and difficulty breathing. Patient states that he has had this once before. Was told that it was lisinopril but his doctors decided to go ahead and try it one more time. Started back this week. Having a little bit of shortness of breath at this time. Able to talk in full sentences. Denies any swelling of his tongue. Lips are remarkably swollen. No rash. No itching. No chest pain. No headache. No Abdominal pain. TRAVEL OUTSIDE OF THE [place] IN LAST 30 DAYS: No - HPI Onset: Just prior to arrival Onset/Duration: Gradual, Worse - Related Data Allergies/Adverse Reactions: DIAMOND Inhibitors Allergy (Severe, Verified 07/24/17 07:38) Angioneurotic Edema lisinopril Allergy (Severe, Verified 07/24/17 07:38) Angioneurotic Edema Past Medical History - General Information source: Patient - Social History Smoking Status: Current Every Day Smoker Cigarette use (# per day): Yes Frequency of alcohol use: None Drug Abuse: None Lives with: Family Family History: Reviewed & Not Pertinent - Past Medical History Cardiac Medical History: Reports: Hx Hypertension Denies: Hx Coronary Artery Disease, Hx Heart Attack Pulmonary Medical History: Reports: Hx Asthma, Hx COPD, Hx Pneumonia Denies: Hx Bronchitis Neurological Medical History: Denies: Hx Seizures Renal/ Medical History: Denies: Hx Peritoneal Dialysis GI Medical History: Reports: Hx Irritable Bowel Musculoskeltal Medical History: Denies Hx Arthritis Past Surgical History: Reports: Hx Abdominal Surgery - Immunizations Hx Diphtheria, Pertussis, Tetanus Vaccination: No Hx Pneumococcal Vaccination: 03/22/12 Review of Systems - Review of Systems Constitutional: denies: Fever, Malaise, Weakness EENT: Difficulty swallowing, Throat swelling, Mouth swelling. denies: Double vision, Ear pain Cardiovascular: Heart racing. denies: Palpitations, Syncope Respiratory: Short of breath, Wheezing. denies: Cough, Hurts to breathe Gastrointestinal: denies: Abdominal pain, Diarrhea, Nausea, Vomiting Genitourinary: denies: Burning, Dysuria, Discharge Musculoskeletal: denies: Back pain, Gout, Joint pain Skin: denies: Lesions, Lumps, Rash Hematologic/Lymphatic: denies: Anemia, Blood clots, Easy bleeding, Easy bruising Neurological/Psychological: denies: Confusion, Dementia, Weakness, Lost consciousness, Headaches, Numbness Physical Exam - Vital signs Vitals: Temp Resp Pulse Ox 98.0 F 20 100 07/24/17 07:23 07/24/17 07:23 07/24/17 07:23 Interpretation: Tachycardic - General General appearance: Appears well, Alert - HEENT Head: Normocephalic, Atraumatic Eyes: Normal Pupils: PERRL Mouth/Lips: Other - he has remarkable swelling to the upper and lower lips. No tounge swelling, swalloing appriately Pharynx: Normal Neck: Normal - Respiratory Respiratory status: No respiratory distress Chest status: Nontender Breath sounds: Normal Chest palpation: Normal - Cardiovascular Rhythm: Tachycardia Heart sounds: Normal auscultation Murmur: No - Abdominal Inspection: Normal Distension: No distension Bowel sounds: Normal Tenderness: Nontender Organomegaly: No organomegaly - Back Back: Normal, Nontender - Extremities General upper extremity: Normal inspection, Nontender, Normal color, Normal ROM , Normal temperature General lower extremity: Normal inspection, Nontender, Normal color, Normal ROM , Normal temperature, Normal weight bearing. No: Siri's sign - Neurological Neuro grossly intact: Yes Cognition: Normal Orientation: AAOx4 Alberto Coma Scale Eye Opening: Spontaneous [place] Coma Scale Verbal: Oriented [place] Coma Scale Motor: Obeys Commands [place] Coma Scale Total: 15 Speech: Normal Motor strength normal: LUE, RUE, LLE, RLE Sensory: Normal - Psychological Associated symptoms: Normal affect, Normal mood - Skin Skin Temperature: Warm Skin Moisture: Dry Skin Color: Normal Course - Re-evaluation Re-evalutation: 07/24/17 09:17 feeling much better but lips are still excessively swollen. No swelling of the tongue. Continue to watch at this time 07/24/17 10:49 At this time his lips really have not gotten any better. Feel uncomfortable discharging him without any improvement. Consulted hospitalist. Agrees to admit at this time. - Vital Signs Vital signs: Temp Pulse Resp BP Pulse Ox 98.0 F 15 163/131 H 96 07/24/17 07:23 07/24/17 09:01 07/24/17 09:01 07/24/17 09:01 Critical Care Note - Critical Care Note Total time excluding time spent on procedures (mins): 45 Comments: Angioedema, tachycardia, hypertension, airway monitoring Discharge - Discharge Clinical Impression: Angioedema due to angiotensin converting enzyme inhibitor (DIAMOND-I) Condition: Good Disposition: ADMITTED OBSERVATION Admitting Provider: Hospitalist - Dr. Goss Unit Admitted: Medical Floor Referrals: GEORGETTE BEDOLLA MD [Primary Care Provider] - Follow up as needed
[2017-07-24] MEDS ORDERED: CLONIDINE HCL 0.1 MG TABLET PO ONE ×2 (08:43→08:45)
[2017-07-24] MEDS ORDERED: HYDROCHLOROTHIAZIDE 25 MG TABLET PO ONE (08:46)
[2017-07-24] MEDS ORDERED: ACETAMINOPHEN 325 MG TABLET PO PRN (11:19)
[2017-07-24] MEDS ORDERED: IPRATROPIUM/ALBUTEROL 0.5-2.5 MG/3 ML AMPUL NEB PRN (11:19)
[2017-07-24] MEDS ORDERED: CETIRIZINE HCL ORAL SOLN 5 MG/5 ML UDCUP PO ONE (11:25)
[2017-07-24] MEDS ORDERED: HYDRALAZINE HCL INJ/PF 20 MG/1 ML SDV IV PRN ×2 (11:27→19:00)
--- NOTE | 2017-07-24 11:43 | PDOC H&P ---
History of Present Illness Admission Date/PCP: 07/24/17 10:58 GEORGETTE BEDOLLA MD Patient complains of: Mouth swelling History of Present Illness: RAMANDEEP BRITTON is a 57 year old male presents to the facility with complaint of oral swelling. Patient states that he went to his primary doctor where his prescribed lisinopril for his blood pressure. Patient states that he took medication and when he woke up this morning his mouth was swollen. Patient reports that he has had this issue before and had been taken off of lisinopril due to perioral swelling. Patient's nephew is present and is very confused as to why this medication would have been prescribed patient given his prior history. Patient currently denies difficulty breathing or swallowing. ER physician gave patient antihistamines and steroids. ER also gave patient medication to help with blood pressure control. Past Medical History Cardiac Medical History: Reports: Hypertension Denies: Coronary Artery Disease, Myocardial Infarction Pulmonary Medical History: Reports: Asthma, Chronic Obstructive Pulmonary Disease (COPD), Pneumonia Denies: Bronchitis Neurological Medical History: Denies: Seizures Musculoskeltal Medical History: Denies: Arthritis Hematology: Reports: Anemia Past Surgical History Past Surgical History: Reports: None Social History Lives with: Family Smoking Status: Current Every Day Smoker Frequency of Alcohol Use: Occasional Hx Recreational Drug Use: No Hx Prescription Drug Abuse: No - Advance Directive Resuscitation Status: Full Code Family History Family History: Reviewed & Not Pertinent Parental Family History Reviewed: Yes Children Family History Reviewed: Yes Sibling(s) Family History Reviewed.: Yes Medication/Allergy Allergies/Adverse Reactions: DIAMOND Inhibitors Allergy (Severe, Verified 07/24/17 07:38) Angioneurotic Edema lisinopril Allergy (Severe, Verified 07/24/17 07:38) Angioneurotic Edema Review of Systems Constitutional: ABSENT: chills, fever(s), headache(s), weight gain, weight loss Eyes: ABSENT: visual disturbances Ears: ABSENT: hearing changes Nose, Mouth, and Throat: PRESENT: other - Upper and lower lip swelling Cardiovascular: ABSENT: chest pain, dyspnea on exertion, edema, orthropnea, palpitations Respiratory: ABSENT: cough, hemoptysis Gastrointestinal: ABSENT: abdominal pain, constipation, diarrhea, hematemesis, hematochezia, nausea, vomiting Genitourinary: ABSENT: dysuria, hematuria Musculoskeletal: ABSENT: joint swelling Integumentary: ABSENT: rash, wounds Neurological: ABSENT: abnormal gait, abnormal speech, confusion, dizziness, focal weakness, syncope Psychiatric: ABSENT: anxiety, depression, homidical ideation, suicidal ideation Endocrine: ABSENT: cold intolerance, heat intolerance, polydipsia, polyuria Hematologic/Lymphatic: ABSENT: easy bleeding, easy bruising Physical Exam Vital Signs: Temp Pulse Resp BP Pulse Ox 98.0 F 16 140/102 H 100 07/24/17 07:23 07/24/17 11:01 07/24/17 11:01 07/24/17 11:01 General appearance: PRESENT: no acute distress, thin, other - Upper and lower lip swelling Head exam: PRESENT: atraumatic, normocephalic Eye exam: PRESENT: conjunctiva pink, EOMI. ABSENT: scleral icterus Ear exam: PRESENT: normal external ear exam Mouth exam: PRESENT: moist, tongue midline, other - Upper and lower lip swelling Neck exam: ABSENT: carotid bruit, JVD, lymphadenopathy, thyromegaly Respiratory exam: PRESENT: clear to auscultation sonal. ABSENT: rales, rhonchi, wheezes Cardiovascular exam: PRESENT: RRR. ABSENT: diastolic murmur, rubs, systolic murmur Pulses: PRESENT: normal dorsalis pedis pul Vascular exam: PRESENT: normal capillary refill GI/Abdominal exam: PRESENT: normal bowel sounds, soft. ABSENT: distended, guarding, mass, organolmegaly, rebound, tenderness Rectal exam: PRESENT: deferred Extremities exam: PRESENT: full ROM. ABSENT: calf tenderness, clubbing, pedal edema Musculoskeletal exam: PRESENT: full ROM Neurological exam: PRESENT: alert, awake, oriented to person, oriented to place , oriented to time, oriented to situation, CN II-XII grossly intact. ABSENT: motor sensory deficit Psychiatric exam: PRESENT: appropriate affect, normal mood. ABSENT: homicidal ideation, suicidal ideation Skin exam: PRESENT: dry, intact, warm. ABSENT: cyanosis, rash Assessment & Plan - Diagnosis (1) Angioedema due to angiotensin converting enzyme inhibitor (DIAMOND-I) Is this a current diagnosis for this admission?: Yes Plan: Patient will be placed on antihistamines, steroids, and placed in IMCU to monitor closely. Will consult pulmonary in case patient requires intubation and has to be placed on the vent. Currently patient is not demonstrating difficulty breathing or swallowing. Will place patient on clear liquids for now. Patient was given steroids and antihistamines in the emergency department we will continue steroids and antihistamines throughout admission. Will monitor patient closely. (2) COPD (chronic obstructive pulmonary disease) Is this a current diagnosis for this admission?: No Plan: Currently no issues. Will continue neb treatments as needed (3) Tobacco dependence Is this a current diagnosis for this admission?: Yes Plan: We will place on nicotine patch (4) Moderate protein-calorie malnutrition Is this a current diagnosis for this admission?: Yes Plan: Once patient swelling has decreased we will place patient on cardiac diet with supplemental drinks. Patient currently on clear liquids (5) PAD (peripheral artery disease) Is this a current diagnosis for this admission?: Yes Plan: Encouraged patient to discontinue tobacco abuse (6) Hypertension Is this a current diagnosis for this admission?: Yes Plan: Patient was given clonidine in the emergency department. Once patient swelling has resolved we will place patient on oral medications for blood pressure control. In the meantime we will write for hydralazine as needed (7) DVT prophylaxis Is this a current diagnosis for this admission?: Yes Plan: SCDs - Time Time Spent: 30 to 50 Minutes
[2017-07-24] MEDS ORDERED: METHYLPREDNISOLONE INJ 125 MG/2 ML SDV IV SCH (12:00)
[2017-07-24] MEDS ORDERED: CETIRIZINE 10 MG TABLET PO ONE (13:00)
[2017-07-24] MEDS: DIPHENHYDRAMINE HCL 50 MG CAPSULE PO SCH ×2 (13:41→21:42)
[2017-07-24] MEDS: RINGERS SOLUTION,LACTATED 1,000 ML IV PRN ×2 (13:43→18:30)
[2017-07-24] MEDS: LANSOPRAZOLE 30 MG TAB.RAP.DR PO SCH (16:00)
[2017-07-24] MEDS: METHYLPREDNISOLONE INJ 125 MG/2 ML SDV IV SCH ×2 (16:00→21:43)
[2017-07-24] MEDS ORDERED: NIFEDIPINE 30 MG TAB.ER.24 PO ONE (19:00)
[2017-07-25] MEDS: RINGERS SOLUTION,LACTATED 1,000 ML IV PRN (03:29)
[2017-07-25] MEDS: METHYLPREDNISOLONE INJ 125 MG/2 ML SDV IV SCH ×2 (03:29→08:17)
[2017-07-25 05:01] LABS: ABSOLUTE BASOPHILS # (AUTO) 0.1 10^3/uL (0.0-0.2); ABSOLUTE LYMPHOCYTES (AUTO) 1.5 10^3/uL (0.5-4.7); ABSOLUTE MONOCYTES (AUTO) 0.3 10^3/uL (0.1-1.4); ABSOLUTE NEUT (AUTO) 14.5 10^3/uL (1.7-8.2); BASOPHILS % (AUTO) 0.5 % (0-2); HEMATOCRIT 34.5 % (37.9-51.0); HEMOGLOBIN 11.5 g/dL (13.5-17.0); LYMPHOCYTES % (AUTO) 9.2 % (13-45); MEAN CORPUSCULAR HEMOGLOBIN 29.4 pg (27.0-33.4); MEAN CORPUSCULAR HGB CONC 33.4 g/dL (32.0-36.0); MEAN CORPUSCULAR VOLUME 88 fl (80-97); MONOCYTES % (AUTO) 1.7 % (3-13); PLATELET COUNT 187 10^3/uL (150-450); RED BLOOD COUNT 3.93 10^6/uL (4.35-5.55); RED CELL DISTRIBUTION WIDTH 14.6 % (11.5-14.0); SEGMENTED NEUTROPHILS % (AUTO) 88.6 % (42-78); TOTAL CELLS COUNTED % (AUTO) 100 %; WHITE BLOOD COUNT 16.4 10^3/uL (4.0-10.5)
[2017-07-25 05:33] LABS: ALANINE AMINOTRANSFERASE 26 U/L (21-72); ALBUMIN 3.4 g/dL (3.5-5.0); ALKALINE PHOSPHATASE 53 U/L (38-126); ANION GAP 12 (5-19); ASPARTATE AMINO TRANSFERASE 23 U/L (17-59); BILIRUBIN,DIRECT 0.1 mg/dL (0.0-0.4); BILIRUBIN,TOTAL 0.6 mg/dL (0.2-1.3); BLOOD UREA NITROGEN 15 mg/dL (7-20); CALCIUM 8.7 mg/dL (8.4-10.2); CARBON DIOXIDE 22 mmol/L (22-30); CHLORIDE 104 mmol/L (98-107); GLUCOSE 129 mg/dL (75-110); POTASSIUM 3.7 mmol/L (3.6-5.0); SODIUM 137.5 mmol/L (137-145); TOTAL PROTEIN 6.3 g/dL (6.3-8.2)
[2017-07-25] MEDS: DIPHENHYDRAMINE HCL 50 MG CAPSULE PO SCH (06:50)
[2017-07-25] MEDS: LANSOPRAZOLE 30 MG TAB.RAP.DR PO SCH (06:50)
[2017-07-25 08:21] VITALS: BP 151/95
[2017-07-25] MEDS ORDERED: CETIRIZINE 10 MG TABLET PO SCH (10:00)
[2017-07-25] MEDS ORDERED: NIFEDIPINE 30 MG TAB.ER.24 PO SCH (10:00)
[2017-07-25] MEDS ORDERED: CETIRIZINE HCL ORAL SOLN 5 MG/5 ML UDCUP PO SCH (10:00)
[2017-07-25] MEDS ORDERED: NIFEDIPINE 30 MG TAB.ER.24 PO ONE (11:00)
--- NOTE | 2017-07-25 11:12 | PDOC DISCHARGE SUMMARY ---
General - Admit/Disc Date/PCP Admission Date/Primary Care Provider: 07/24/17 10:58 GEORGETTE BEDOLLA MD Discharge Date: 07/25/17 - Discharge Diagnosis (1) Angioedema due to angiotensin converting enzyme inhibitor (DIAMOND-I) Is this a current diagnosis for this admission?: Yes Summary: Secondary to lisinopril. Patient was told to not take lisinopril again. Patient was discharged home on antihistamines and steroids. (2) COPD (chronic obstructive pulmonary disease) Is this a current diagnosis for this admission?: No Summary: No issues. (3) Tobacco dependence Is this a current diagnosis for this admission?: Yes Summary: Will encourage discontinuation of tobacco use. (4) Moderate protein-calorie malnutrition Is this a current diagnosis for this admission?: Yes Summary: Encourage patient to use supplemental drinks and eat regular meals times a day (5) PAD (peripheral artery disease) Is this a current diagnosis for this admission?: Yes Summary: I have recommended that patient follow up with cardiology for outpatient stress test. (6) Hypertension Is this a current diagnosis for this admission?: Yes Summary: Patient placed on Procardia XL 90 mg p.o. daily and continued on hydrochlorothiazide. Patient will need to follow-up with PCP for continuation of blood pressure control. Patient should never be placed back on DIAMOND inhibitors. - Additional Information Resuscitation Status: Full Code Discharge Diet: Cardiac Discharge Activity: Activity As Tolerated Prescriptions: Cetirizine HCl [Zyrtec 10 mg Tablet] 10 mg PO DAILY #30 tablet Lansoprazole [Prevacid 30 mg Odt Tablet] 30 mg PO BID@0600,1700 #60 tab.rap. Methylprednisolone [Medrol Dosepack (4 mg/Tab) 21 Tab/Dosepak] 4 mg PO ASDIR PRN #21 tab.ds.pk PRN Reason: Nifedipine [Procardia Xl] 90 mg PO DAILY #30 tab.er.24 Home Medications: Albuterol Sulfate [Proair HFA Inhalation Aerosol 8.5 gm MDI] 2 puff IH QID 07/24 Cyclosporine [Restasis Multidose] 1 drop OU BID 07/24/17 Fluticasone/Salmeterol [Advair 250-50 Diskus 14 Dose/Diskus] 1 puff IH Q12 07/24 Hydrochlorothiazide [Hydrodiuril 12.5 mg Capsule] 0.5 tab PO DAILY 07/24/17 Multivit-Min/Folic/Vit K/Lycop [Men's Daily Formula Tablet] 1 tab PO DAILY 07/24 Pantoprazole Sodium [Protonix] 40 mg PO DAILY 07/24/17 Paroxetine HCl [Paxil 20 mg Tablet] 20 mg PO DAILY 07/24/17 Tiotropium [place] [Spiriva Respimat] 1 puff IH DAILY 07/24/17 Cetirizine HCl [Zyrtec 10 mg Tablet] 10 mg PO DAILY #30 tablet 07/25/17 Lansoprazole [Prevacid 30 mg Odt Tablet] 30 mg PO BID@0600,1700 #60 tab.rap.dr 07/25/17 Methylprednisolone [Medrol Dosepack (4 mg/Tab) 21 Tab/Dosepak] 4 mg PO ASDIR PRN #21 tab.ds.pk 07/25/17 Nifedipine [Procardia Xl] 90 mg PO DAILY #30 tab.er.24 07/25/17 History of Present Illness Patient complains of: Perioral swelling History of Present Illness: RAMANDEEP BRITTON is a 57 year old male presents to the facility with complaint of oral swelling. Patient states that he went to his primary doctor where his prescribed lisinopril for his blood pressure. Patient states that he took medication and when he woke up this morning his mouth was swollen. Patient reports that he has had this issue before and had been taken off of lisinopril due to perioral swelling. Patient's nephew is present and is very confused as to why this medication would have been prescribed patient given his prior history. Patient currently denies difficulty breathing or swallowing. ER physician gave patient antihistamines and steroids. ER also gave patient medication to help with blood pressure control. Hospital Course Hospital Course: Patient is 57-year-old gentleman that was admitted to our facility for perioral swelling after being placed back on lisinopril. Patient states that he had been on lisinopril in the past and had problems with perioral swelling and difficulty breathing. Patient states he followed up with his primary doctor and he was placed back on this medication again. Patient states that he did take the medication and when he woke up his mouth was swollen. Patient was placed on steroids and antihistamines. Patient did well throughout hospitalization. Patient was noted to have elevated blood pressure and therefore patient was started on Procardia 90 mg daily and told to continue with hydrochlorothiazide. Patient will need to follow-up with primary care for blood pressure management. Patient should never be placed back on DIAMOND inhibitors. Patient also will be scheduled for outpatient stress test with Dr. Chapa. Physical Exam Vital Signs: Temp Pulse Resp BP Pulse Ox 98.0 F 80 16 151/95 H 100 07/25/17 07:44 07/25/17 07:44 07/25/17 07:44 07/25/17 07:44 07/25/17 07:44 Intake & Output 07/24/17 07/25/17 07/26/17 06:59 06:59 06:59 Intake Total 1470 Output Total 550 Balance 920 Weight 58.4 kg General appearance: PRESENT: no acute distress, well-developed, well-nourished Head exam: PRESENT: atraumatic, normocephalic Eye exam: PRESENT: conjunctiva pink, EOMI, PERRLA. ABSENT: scleral icterus Ear exam: PRESENT: normal external ear exam Mouth exam: PRESENT: other - Positive for significant decrease swelling of perioral mucosa Neck exam: ABSENT: carotid bruit, JVD, lymphadenopathy, thyromegaly Respiratory exam: PRESENT: clear to auscultation sonal. ABSENT: rales, rhonchi, wheezes Cardiovascular exam: PRESENT: RRR. ABSENT: diastolic murmur, rubs, systolic murmur Pulses: PRESENT: normal dorsalis pedis pul Vascular exam: PRESENT: normal capillary refill GI/Abdominal exam: PRESENT: normal bowel sounds, soft. ABSENT: distended, guarding, mass, organolmegaly, rebound, tenderness Rectal exam: PRESENT: deferred Extremities exam: PRESENT: full ROM. ABSENT: calf tenderness, clubbing, pedal edema Neurological exam: PRESENT: alert, awake, oriented to person, oriented to place , oriented to time, oriented to situation, CN II-XII grossly intact. ABSENT: motor sensory deficit Psychiatric exam: PRESENT: appropriate affect, normal mood. ABSENT: homicidal ideation, suicidal ideation Skin exam: PRESENT: dry, intact, warm. ABSENT: cyanosis, rash Results Laboratory Results: 07/25/17 04:12 07/25/17 04:12 07/25/17 07/25/17 04:12 04:12 WBC 16.4 H RBC 3.93 L Hgb 11.5 L Hct 34.5 L MCV 88 MCH 29.4 MCHC 33.4 RDW 14.6 H Plt Count 187 Seg Neutrophils % 88.6 H Lymphocytes % 9.2 L Monocytes % 1.7 L Eosinophils % 0.0 Basophils % 0.5 Absolute Neutrophils 14.5 H Absolute Lymphocytes 1.5 Absolute Monocytes 0.3 Absolute Eosinophils 0.0 Absolute Basophils 0.1 Sodium 137.5 Potassium 3.7 Chloride 104 Carbon Dioxide 22 Anion Gap 12 BUN 15 Creatinine 1.09 Est GFR ( Amer) > 60 Est GFR (Non-Af Amer) > 60 Glucose 129 H Calcium 8.7 Total Bilirubin 0.6 AST 23 ALT 26 Alkaline Phosphatase 53 Total Protein 6.3 Albumin 3.4 L Qualifiers - * PATEINT BEING DISCHARGED WITH ANY OF THE FOLLOWING DIAGNOSIS?: No Plan Time Spent: Greater than 30 Minutes
[2017-07-26] MEDS ORDERED: NIFEDIPINE 30 MG TAB.ER.24 PO SCH (10:00)
== END 2017-07-25 13:08 | disposition home or self-care (01) | DRG 916 ==
LOC: ER 07:16 → EH 10:58 → OBSVTOIN 10:58 → 3N 18:17
PROVIDERS: ADMIT Emergency Medicine; ATTEND Emergency Medicine
PROC: 3E0F73Z Introduction of Anti-inflammatory into Respiratory Tract, Via Natural or Artificial Opening (ICD-10-PCS; principal; 2017-07-25)
DX: T78.3XXA Angioneurotic edema, initial encounter (principal); E44.0 Moderate protein-calorie malnutrition; Z68.1 Body mass index [BMI] 19.9 or less, adult; T46.4X5A Adverse effect of angiotensin-converting-enzyme inhibitors, initial encounter; I10 Essential (primary) hypertension; F17.210 Nicotine dependence, cigarettes, uncomplicated; J45.909 Unspecified asthma, uncomplicated; J44.9 Chronic obstructive pulmonary disease, unspecified; I73.9 Peripheral vascular disease, unspecified; Z79.899 Other long term (current) drug therapy
CPT/HCPCS: 36415; 80053; 85025; 96361; 96374; 96375; 96376; 99285; J1200; J2930; J7030; J7120; S0028

== ENCOUNTER → 2017-12-02 | Outpatient (CLI) | payer SELFPAY ==
--- NOTE | 2017-12-02 10:35 | RADIOLOGY REPORT (SQ) ---
EXAM DESCRIPTION: CHEST 2 VIEWS COMPLETED DATE/TIME: 12/02/2017 10:04 am REASON FOR STUDY: OTHER NONSPECIFIC ABNORMAL FINDING OF LUNG FIELD COMPARISON: CT chest 06/29/2017, chest x-ray 03/02/2017 EXAM PARAMETERS: NUMBER OF VIEWS: two views TECHNIQUE: Digital Frontal and Lateral radiographic views of the chest acquired. RADIATION DOSE: NA LIMITATIONS: none FINDINGS: LUNGS AND PLEURA: Hyperinflation. No infiltrates masses or effusions. Suspected minimal opacity left apex on the previous chest x-ray did not persist on follow-up CT scan and is not seen on the current chest x-ray. MEDIASTINUM AND HILAR STRUCTURES: No masses or contour abnormalities. HEART AND VASCULAR STRUCTURES: Heart normal size. No evidence for failure. BONES: No acute findings. HARDWARE: None in the chest. OTHER: No other significant finding. IMPRESSION: COPD. No active cardiopulmonary disease. See above discussion. TECHNICAL DOCUMENTATION: JOB ID: [id number] [email or web address]- All Rights Reserved Reading location - IP/workstation name: [email or web address]
== END ==
LOC: RAD 09:51
PROVIDERS: ATTEND Family Medicine
DX: R91.8 Other nonspecific abnormal finding of lung field (principal); J44.9 Chronic obstructive pulmonary disease, unspecified
CPT/HCPCS: 71046

== ENCOUNTER 2018-07-25 13:18 | Emergency (ER) | payer SELFPAY ==
[2018-07-25] MEDS ORDERED: METHYLPREDNISOLONE INJ 125 MG/2 ML SDV IV ONE (15:23)
[2018-07-25] MEDS ORDERED: IPRATROPIUM/ALBUTEROL 0.5-2.5 MG/3 ML AMPUL NEB ONE (15:23)
--- NOTE | 2018-07-25 15:26 | ER Document Report ---
ED Medical Screen (RME) - General Chief Complaint: Chest Pain Stated Complaint: SICK Time Seen by Provider: 07/25/18 15:23 Primary Care Provider: SRAVAN CEJA MD [Primary Care Provider] - Follow up as needed Notes: Patient is a 4-year-old male presents the emergency department for generalized cough, congestion, difficulty breathing, chest tightness. Patient states he does have a history of COPD and has been taking his at home albuterol as he feels necessary. Patient states he feels as though it is hard to take a deep breath and at times he does have some tightness in his chest. Patient is denying any generalized chest pain. Patient's denying any fever, nausea, vomiting, abdominal pain. GENERAL: Alert, interacts well. No acute distress. LUNGS: Diminished bilaterally with scant expiratory wheezes bilateral bases, no discernible rales, or rhonchi. No respiratory distress. HEART: Regular rate and rhythm. No murmur I have greeted and performed a rapid initial assessment of this patient. A comprehensive ED assessment and evaluation of the patient, analysis of test results and completion of the medical decision making process will be conducted by additional ED providers. TRAVEL OUTSIDE OF THE [place] IN LAST 30 DAYS: No - Related Data Allergies/Adverse Reactions: DIAMOND Inhibitors Allergy (Severe, Verified 07/24/17 07:38) Angioneurotic Edema lisinopril Allergy (Severe, Verified 07/24/17 07:38) Angioneurotic Edema Past Medical History - Past Medical History Cardiac Medical History: Reports: Hx Hypertension Denies: Hx Coronary Artery Disease, Hx Heart Attack Pulmonary Medical History: Reports: Hx Asthma, Hx COPD, Hx Pneumonia Denies: Hx Bronchitis Neurological Medical History: Denies: Hx Seizures Renal/ Medical History: Denies: Hx Peritoneal Dialysis GI Medical History: Reports: Hx Irritable Bowel Musculoskeltal Medical History: Denies Hx Arthritis Psychiatric Medical History: Denies: Hx Depression Past Surgical History: Reports: Hx Abdominal Surgery - Immunizations Hx Diphtheria, Pertussis, Tetanus Vaccination: No History of Influenza Vaccine for 02/2017 - 07/2017 Season: Yes Influenza Administration Date for 02/2017 - 07/2017 Season: 02/28/18 Physical Exam - Vital signs Vitals: Temp Pulse Resp BP Pulse Ox 99.1 F 79 20 154/109 H 100 07/25/18 13:43 07/25/18 13:43 07/25/18 13:43 07/25/18 13:43 07/25/18 13:43 Course - Vital Signs Vital signs: Temp Pulse Resp BP Pulse Ox 99.1 F 79 20 154/109 H 100 07/25/18 13:43 07/25/18 13:43 07/25/18 13:43 07/25/18 13:43 07/25/18 13:43 Doctor's Discharge - Discharge Referrals: SRAVAN CEJA MD [Primary Care Provider] - Follow up as needed
--- NOTE | 2018-07-25 16:06 | RADIOLOGY REPORT (SQ) ---
EXAM DESCRIPTION: CHEST 2 VIEWS COMPLETED DATE/TIME: 07/25/2018 3:52 pm REASON FOR STUDY: CP COMPARISON: 12/02/2017. EXAM PARAMETERS: NUMBER OF VIEWS: two views TECHNIQUE: Digital Frontal and Lateral radiographic views of the chest acquired. RADIATION DOSE: NA LIMITATIONS: none FINDINGS: LUNGS AND PLEURA: No opacities, masses or pneumothorax. No pleural effusion. MEDIASTINUM AND HILAR STRUCTURES: No masses or contour abnormalities. HEART AND VASCULAR STRUCTURES: Heart normal size. No evidence for failure. BONES: No acute findings. HARDWARE: None in the chest. OTHER: No other significant finding. IMPRESSION: NO ACUTE RADIOGRAPHIC FINDING IN THE CHEST. TECHNICAL DOCUMENTATION: JOB ID: [id number] [email or web address]- All Rights Reserved Reading location - IP/workstation name: [email or web address]
[2018-07-25 17:13] LABS: ABSOLUTE BASOPHILS # (AUTO) 0.1 10^3/uL (0.0-0.2); ABSOLUTE EOSINOPHILS # (AUTO) 0.4 10^3/uL (0.0-0.6); ABSOLUTE LYMPHOCYTES (AUTO) 2.2 10^3/uL (0.5-4.7); ABSOLUTE NEUT (AUTO) 2.8 10^3/uL (1.7-8.2); EOSINOPHILS % (AUTO) 6.2 % (0-6); HEMATOCRIT 41.2 % (37.9-51.0); HEMOGLOBIN 14.1 g/dL (13.5-17.0); LYMPHOCYTES % (AUTO) 33.7 % (13-45); MEAN CORPUSCULAR HEMOGLOBIN 30.4 pg (27.0-33.4); MEAN CORPUSCULAR HGB CONC 34.1 g/dL (32.0-36.0); MEAN CORPUSCULAR VOLUME 89 fl (80-97); MONOCYTES % (AUTO) 16.3 % (3-13); PLATELET COUNT 242 10^3/uL (150-450); RED BLOOD COUNT 4.63 10^6/uL (4.35-5.55); RED CELL DISTRIBUTION WIDTH 14.4 % (11.5-14.0); SEGMENTED NEUTROPHILS % (AUTO) 42.8 % (42-78); TOTAL CELLS COUNTED % (AUTO) 100 %; WHITE BLOOD COUNT 6.4 10^3/uL (4.0-10.5)
[2018-07-25 17:30] LABS: ALANINE AMINOTRANSFERASE 20 U/L (21-72); ALBUMIN 4.7 g/dL (3.5-5.0); ALKALINE PHOSPHATASE 68 U/L (38-126); ANION GAP 11 (5-19); ASPARTATE AMINO TRANSFERASE 30 U/L (17-59); BILIRUBIN,DIRECT 0.3 mg/dL (0.0-0.4); BILIRUBIN,TOTAL 0.7 mg/dL (0.2-1.3); BLOOD UREA NITROGEN 20 mg/dL (7-20); CALCIUM 9.4 mg/dL (8.4-10.2); CARBON DIOXIDE 23 mmol/L (22-30); CHLORIDE 107 mmol/L (98-107); GLUCOSE 92 mg/dL (75-110); POTASSIUM 4.6 mmol/L (3.6-5.0); SODIUM 140.7 mmol/L (137-145); TOTAL PROTEIN 8.3 g/dL (6.3-8.2)
[2018-07-25 17:39] LABS: A TYPE INFLUENZA AG NEGATIVE (NEGATIVE); B INFLUENZA AG NEGATIVE (NEGATIVE)
--- NOTE | 2018-07-25 19:01 | ER Document Report ---
ED General - General Chief Complaint: Chest Pain Stated Complaint: SICK Time Seen by Provider: 07/25/18 15:23 Primary Care Provider: SRAVAN CEJA MD [Primary Care Provider] - Follow up as needed TRAVEL OUTSIDE OF THE [place] IN LAST 30 DAYS: No - HPI Notes: Patient is a 58-year-old male that presents to the emergency department for chief complaint of joint pain, shortness of breath, abdominal pain and feeling sick. Patient states over the last 2 weeks he has had a mild diffuse abdominal pain. He states it is crampy and intermittent in nature. He denies any associated nausea vomiting or diarrhea. Patient also complaining of increasing shortness of breath. He does still smoke cigarettes. He denies using any home albuterol inhalers. Patient denies being on any steroids currently. He states that he is getting chest pains that are intermittent. He states for the last few months he will have a sharp pinch on the left side of his chest. It lasts for 1 second at a time and then completely resolves. There is been no change in this symptom over the last few months. He denies history of heart attack in the past. Patient is also complaining of diffuse joint pain. He denies any injury or trauma. He states he just feels achy all over. Past Medical History: Hypertension, PAD, COPD Past Surgical History: Viewed in chart Social History: Daily tobacco. Denies alcohol. Family History: Reviewed and noncontributory for presenting illness Allergies: Reviewed, see documented allergy list. REVIEW OF SYSTEMS: CONSTITUTIONAL : No fever No chills No diaphoresis No recent illness EENT: No vision changes No congestion No sore throat CARDIOVASCULAR: chest pain No palpitations RESPIRATORY: shortness of breath cough No difficulty breathing GASTROINTESTINAL: abdominal pain No nausea No vomiting No diarrhea GENITOURINARY: No dysuria No hematuria No difficulty urinating MUSCULOSKELETAL: No back pain leg pain arm pain SKIN: No rashes No lesions LYMPHATIC: No swollen, enlarged glands. NEUROLOGICAL: No lightheadedness No headache No weakness No paresthesias PSYCHIATRIC: No anxiety No depression PHYSICAL EXAMINATION: Vital signs reviewed, nursing noted reviewed. GENERAL: Well-appearing, thin and in no acute distress. HEAD: Atraumatic, normocephalic. EYES: Eyes appear normal, extraocular movements intact, sclera anicteric, conjunctiva are normal. ENT: nares patent, oropharynx clear without exudates. Moist mucous membranes. NECK: Normal range of motion, supple without lymphadenopathy LUNGS: Breath sounds wheezy to auscultation bilaterally. No tachypnea or accessory muscle use HEART: Regular rate and rhythm without murmurs ABDOMEN: Soft, nontender, normoactive bowel sounds. No rebound, guarding, or rigidity. No masses appreciated. EXTREMITIES: Nontender, good range of motion, no pitting or edema. NEUROLOGICAL: No focal neurological deficits. Moves all extremities spontaneously Motor and sensory grossly intact on exam. PSYCH: Normal mood, normal affect. SKIN: Warm, Dry, normal turgor, no rashes or lesions noted on exposed skin - Related Data Allergies/Adverse Reactions: DIAMOND Inhibitors Allergy (Severe, Verified 07/24/17 07:38) Angioneurotic Edema lisinopril Allergy (Severe, Verified 07/24/17 07:38) Angioneurotic Edema Past Medical History - Social History Smoking Status: Current Every Day Smoker Chew tobacco use (# tins/day): No Drug Abuse: None Family History: Reviewed & Not Pertinent Patient has suicidal ideation: No Patient has homicidal ideation: No - Past Medical History Cardiac Medical History: Reports: Hx Hypertension Denies: Hx Coronary Artery Disease, Hx Heart Attack Pulmonary Medical History: Reports: Hx Asthma, Hx COPD, Hx Pneumonia Denies: Hx Bronchitis Neurological Medical History: Denies: Hx Seizures Renal/ Medical History: Denies: Hx Peritoneal Dialysis GI Medical History: Reports: Hx Gastroesophageal Reflux Disease, Hx Irritable Bowel Musculoskeletal Medical History: Denies Hx Arthritis Psychiatric Medical History: Denies: Hx Depression Past Surgical History: Reports: Hx Abdominal Surgery - Immunizations Hx Diphtheria, Pertussis, Tetanus Vaccination: No Hx Pneumococcal Vaccination: 03/22/12 Physical Exam - Vital signs Vitals: Temp Pulse Resp BP Pulse Ox 99.1 F 79 20 154/109 H 100 07/25/18 13:43 07/25/18 13:43 07/25/18 13:43 07/25/18 13:43 07/25/18 13:43 Course - Re-evaluation Re-evalutation: 07/25/18 19:01 Vitals reviewed. Nursing notes reviewed. Patient is hypertensive but states he has been compliant with his home blood pressure medication. His workup today is unremarkable. He is thin and chart review shows he has a history of malnourish ment in the past. Patient is not a great historian but was able to answer questions appropriately given the time to think about his answers thoroughly. Patient states he has felt confused for a long time and that is not new. He lives at home with his daughter who is not currently present. He states she is helpful around the house. He has complained of chest pain today but has a negative troponin and unremarkable EKG. Patient's chest pain has been lasting for 1 second at a time intermittently over the last few months. This is not typical for ACS and I do not feel further cardiac workup is indicated today. Patient has not had any of the chest pain since being in the emergency room. He does have some bilateral wheezing and was counseled on tobacco cessation. Patient will be given albuterol inhaler for his cough and shortness of breath. He is oxygenating well on room air. Patient's abdominal pain is unchanged from pain he has had in the past. He is on a PPI and states he sees a GI doctor. His abdominal exam is soft with no focal tenderness and further workup with CT scan not currently indicated given the benign nature of his abdominal exam. Patient advised to follow closely with his primary care doctor for reevaluation of his symptoms and blood pressure in the next 1-2 days. Patient in agreement with plan of care and stable at discharge. He was counseled on return precautions and verbalized understanding. Laboratory 07/25/18 07/25/18 07/25/18 17:00 17:00 17:00 WBC 6.4 RBC 4.63 Hgb 14.1 Hct 41.2 MCV 89 MCH 30.4 MCHC 34.1 RDW 14.4 H Plt Count 242 Seg Neutrophils % 42.8 Lymphocytes % 33.7 Monocytes % 16.3 H Eosinophils % 6.2 H Basophils % 1.0 Absolute Neutrophils 2.8 Absolute Lymphocytes 2.2 Absolute Monocytes 1.0 Absolute Eosinophils 0.4 Absolute Basophils 0.1 Sodium 140.7 Potassium 4.6 Chloride 107 Carbon Dioxide 23 Anion Gap 11 BUN 20 Creatinine 1.41 H Est GFR ( Amer) > 60 Est GFR (Non-Af Amer) 51 L Glucose 92 Calcium 9.4 Total Bilirubin 0.7 Direct Bilirubin 0.3 Neonat Total Bilirubin Not Reportable Neonat Direct Bilirubin Not Reportable Neonat Indirect Bili Not Reportable AST 30 ALT 20 L Alkaline Phosphatase 68 Troponin I < 0.012 Total Protein 8.3 H Albumin 4.7 Influenza A (Rapid) Influenza B (Rapid) 07/25/18 17:11 WBC RBC Hgb Hct MCV MCH MCHC RDW Plt Count Seg Neutrophils % Lymphocytes % Monocytes % Eosinophils % Basophils % Absolute Neutrophils Absolute Lymphocytes Absolute Monocytes Absolute Eosinophils Absolute Basophils Sodium Potassium Chloride Carbon Dioxide Anion Gap BUN Creatinine Est GFR ( Amer) Est GFR (Non-Af Amer) Glucose Calcium Total Bilirubin Direct Bilirubin Neonat Total Bilirubin Neonat Direct Bilirubin Neonat Indirect Bili AST ALT Alkaline Phosphatase Troponin I Total Protein Albumin Influenza A (Rapid) NEGATIVE Influenza B (Rapid) NEGATIVE Chest X-Ray 07/25/18 15:24 IMPRESSION: NO ACUTE RADIOGRAPHIC FINDING IN THE CHEST. 07/25/18 19:03 - Vital Signs Vital signs: Temp Pulse Resp BP Pulse Ox 99.1 F 79 20 154/109 H 100 07/25/18 13:43 07/25/18 13:43 07/25/18 13:43 07/25/18 13:43 07/25/18 13:43 - Laboratory Result Diagrams: 07/25/18 17:00 07/25/18 17:00 Laboratory results interpreted by me: 07/25/18 07/25/18 17:00 17:00 RDW 14.4 H Monocytes % 16.3 H Eosinophils % 6.2 H Creatinine 1.41 H Est GFR (Non-Af Amer) 51 L ALT 20 L Total Protein 8.3 H - EKG Interpretation by Me Additional EKG results interpreted by me: 07/25/18 19:04 Interpreted by myself [id number]: Normal sinus rhythm, rate 80, normal axis, no ectopy, no STEMI Discharge - Discharge Clinical Impression: COPD exacerbation Joint pain Qualifiers: Joint pain location: unspecified Qualified Code(s): M25.50 - Pain in unspecified joint Abdominal pain Qualifiers: Abdominal location: generalized Qualified Code(s): R10.84 - Generalized abdominal pain Chest pain Qualifiers: Chest pain type: unspecified Qualified Code(s): R07.9 - Chest pain, unspecified Condition: Stable Disposition: HOME, SELF-CARE Instructions: Abdominal Pain ([facility]), Chest Pain of Unclear Cause ([facility]), Chronic Obstructive Lung Disease ([facility]) Additional Instructions: Please return to the emergency department if you have any worsening, or concern of your symptoms. Please return to the emergency department if you develop chest pain, difficulty breathing, severe abdominal pain, or ongoing vomiting. Please follow-up with your primary care physician in 1-2 days and any other recommended physicians. If prescribed, take all medications as directed. If you have any questions or concerns do not hesitate to return the emergency department for evaluation. Prescriptions: Albuterol Sulfate [Proair HFA Inhalation Aerosol 8.5 gm MDI] 2 puff IH Q4H PRN #1 mdi PRN Reason: Referrals: SRAVAN CEJA MD [Primary Care Provider] - Follow up tomorrow
[2018-07-25 19:57] VITALS: BP 145/109
--- NOTE | 2018-07-27 10:22 | EKG REPORT ---
SEVERITY:- NORMAL ECG - SINUS RHYTHM : Confirmed by: Wanda Chapa 27-Jul-2018 10:22:03
== END 2018-07-25 20:11 | disposition home or self-care (01) ==
LOC: ER 13:18
DX: J44.1 Chronic obstructive pulmonary disease with (acute) exacerbation (principal); R07.9 Chest pain, unspecified; M25.50 Pain in unspecified joint; R10.84 Generalized abdominal pain; R06.02 Shortness of breath; F17.210 Nicotine dependence, cigarettes, uncomplicated; I10 Essential (primary) hypertension
CPT/HCPCS: 93005; 94640; 99284; 96374; 36415; 85025; 80053; 84484; 87804; 71046; 93010; J2930; J7620

== ENCOUNTER 2018-11-18 07:41 | Emergency (ER) | payer MEDICAID, MEDICARE ==
[2018-11-18] MEDS ORDERED: IPRATROPIUM/ALBUTEROL 0.5-2.5 MG/3 ML AMPUL NEB ONE ×2 (08:53→12:37)
--- NOTE | 2018-11-18 08:57 | ER Document Report ---
ED Medical Screen (RME) - General Chief Complaint: Abdominal Pain Stated Complaint: ABDOMINAL PAIN Time Seen by Provider: 11/18/18 08:52 Primary Care Provider: SRAVAN CEJA MD [Primary Care Provider] - Follow up as needed Notes: Patient is a 58-year-old male with a history of hypertension, COPD who presents to the emergency department with abdominal pain and shortness of breath. Patient states he has not felt well over the past 3 to 4 weeks. Patient states that he develops upper abdominal pain when eating. Patient denies vomiting but has had nausea. Patient denies diarrhea. Patient states he did see his primary care physician and thinks he was placed on an antibiotic for possible pneumonia. Patient is a poor historian. Patient reports a productive cough with green sputum. Patient states he has had intermittent chest pain and shortness of breath. Denies fever, + chills. TRAVEL OUTSIDE OF THE [place] IN LAST 30 DAYS: No - Related Data Allergies/Adverse Reactions: DIAMOND Inhibitors Allergy (Severe, Verified 11/18/18 07:44) Angioneurotic Edema lisinopril Allergy (Severe, Verified 11/18/18 07:44) Angioneurotic Edema Past Medical History - Past Medical History Cardiac Medical History: Reports: Hx Hypertension Denies: Hx Coronary Artery Disease, Hx Heart Attack Pulmonary Medical History: Reports: Hx Asthma, Hx COPD, Hx Pneumonia Denies: Hx Bronchitis Neurological Medical History: Denies: Hx Seizures Renal/ Medical History: Denies: Hx Peritoneal Dialysis GI Medical History: Reports: Hx Gastroesophageal Reflux Disease, Hx Irritable Bowel Musculoskeltal Medical History: Denies Hx Arthritis Psychiatric Medical History: Denies: Hx Depression Past Surgical History: Reports: Hx Abdominal Surgery - Immunizations Hx Diphtheria, Pertussis, Tetanus Vaccination: No History of Influenza Vaccine for 02/2017 - 07/2017 Season: Yes Influenza Administration Date for 02/2017 - 07/2017 Season: 02/28/18 Physical Exam - Vital signs Vitals: Temp Pulse Resp BP Pulse Ox 97.9 F 80 24 H 135/95 H 97 11/18/18 07:46 11/18/18 07:46 11/18/18 07:46 11/18/18 07:46 11/18/18 07:46 Interpretation: Tachypneic - Respiratory Respiratory status: Tachypnea Chest status: Nontender Breath sounds: Productive cough, Rhonchi, Wheezing Course - Re-evaluation Re-evalutation: 11/18/18 08:56 Upon initial assessment in triage patient sitting upright and tachypneic. Patient did come in primarily for his abdominal pain and nausea. The patient states he is also had a productive cough with green sputum. Patient is concerned he may have pneumonia as he does not feel well all over. Patient's lung sounds are coarse, with scattered rhonchi and scattered expiratory wheeze. I will order a DuoNeb in triage. Patient states he has ran out of some of his inhalers at home as he has not been able to take them. I have greeted and performed a rapid initial assessment of this patient. A comprehensive ED assessment and evaluation of the patient, analysis of test results and completion of the medical decision making process will be conducted by additional ED providers. - Vital Signs Vital signs: Temp Pulse Resp BP Pulse Ox 97.9 F 80 24 H 135/95 H 97 11/18/18 07:46 11/18/18 07:46 11/18/18 07:46 11/18/18 07:46 11/18/18 07:46 Doctor's Discharge - Discharge Referrals: SRAVAN CEJA MD [Primary Care Provider] - Follow up as needed
--- NOTE | 2018-11-18 09:30 | RADIOLOGY REPORT (SQ) ---
EXAM DESCRIPTION: CHEST 2 VIEWS COMPLETED DATE/TIME: 11/18/2018 9:17 am REASON FOR STUDY: sob, productive cough x 3 weeks COMPARISON: CT chest 06/29/2017 Two-view chest 12/02/2017, 07/25/2018 EXAM PARAMETERS: NUMBER OF VIEWS: two views TECHNIQUE: Digital Frontal and Lateral radiographic views of the chest acquired. RADIATION DOSE: NA LIMITATIONS: none FINDINGS: LUNGS AND PLEURA: Whole lungs are hyperlucent from obstructive disease. No acute infiltra irving. No pleural effusion. No pneumothorax. Mild biapical pleural-parenchymal scarring. MEDIASTINUM AND HILAR STRUCTURES: No masses or contour abnormalities. HEART AND VASCULAR STRUCTURES: Heart normal size. No evidence for failure. BONES: No acute findings. HARDWARE: None in the chest. OTHER: No other significant finding. IMPRESSION: NO ACUTE RADIOGRAPHIC FINDING IN THE CHEST. TECHNICAL DOCUMENTATION: JOB ID: [id number] [employer]- All Rights Reserved Reading location - IP/workstation name: [email or web address]
[2018-11-18] MEDS ORDERED: ONDANSETRON HCL INJ/PF 4 MG/2 ML SDV IV ONE (10:02)
[2018-11-18] MEDS ORDERED: RINGERS SOLUTION,LACTATED 1,000 ML IV ONE (10:02)
--- NOTE | 2018-11-18 10:08 | ER Document Report ---
ED General - General Chief Complaint: Abdominal Pain Stated Complaint: ABDOMINAL PAIN Time Seen by Provider: 11/18/18 08:52 Primary Care Provider: SRAVAN CEJA MD [NO LOCAL MD] - Follow up tomorrow Mode of Arrival: Ambulatory Information source: Patient, [facility] Records Notes: 58-year-old male with COPD, hypertension, GERD, recurrent abdominal pain presents with chief complaint of "I just feel sick". Patient is a poor informant and has multiple vague complaints. Patient states that he has had generalized abdominal pain for 2 to 3 weeks. He has had associated nausea without vomiting or diarrhea. His last bowel movement was yesterday and he denies any black or bloody stools. Patient also complains of productive cough, shortness of breath, wheezing. Does believe that he was recently placed on an antibiotic for pneumonia. Patient does continue to smoke tobacco, marijuana and drink occasionally. Patient denies fever, chills, chest pain, back pain, dysuria, hematuria. TRAVEL OUTSIDE OF THE [place] IN LAST 30 DAYS: No - HPI Onset: Other Onset/Duration: Gradual, Intermittent, Persistent Quality of pain: Cramping Severity: Mild Associated symptoms: Body/muscle aches, Productive cough, Nausea, Shortness of breath, Other - Abdominal pain. denies: Chest pain, Diarrhea, Fever, Headache, Leg swelling, Vomiting Exacerbated by: Coughing Relieved by: Denies Similar symptoms previously: Yes Recently seen / treated by doctor: Yes - Related Data Allergies/Adverse Reactions: DIAMOND Inhibitors Allergy (Severe, Verified 11/18/18 07:44) Angioneurotic Edema lisinopril Allergy (Severe, Verified 11/18/18 07:44) Angioneurotic Edema Past Medical History - General Information source: Patient - Social History Smoking Status: Current Every Day Smoker Cigarette use (# per day): Yes - 10 Chew tobacco use (# tins/day): No Smoking Education Provided: Yes - Smoking cessation counseling was provided for 4 minutes at the bedside Frequency of alcohol use: Occasional Drug Abuse: Marijuana Lives with: Alone Family History: Reviewed & Not Pertinent Patient has suicidal ideation: No Patient has homicidal ideation: No - Past Medical History Cardiac Medical History: Reports: Hx Hypertension Denies: Hx Coronary Artery Disease, Hx Heart Attack Pulmonary Medical History: Reports: Hx Asthma, Hx COPD, Hx Pneumonia Denies: Hx Bronchitis Neurological Medical History: Denies: Hx Seizures Renal/ Medical History: Denies: Hx Peritoneal Dialysis GI Medical History: Reports: Hx Gastroesophageal Reflux Disease, Hx Irritable Bowel Musculoskeletal Medical History: Denies Hx Arthritis Psychiatric Medical History: Denies: Hx Depression Past Surgical History: Reports: Hx Abdominal Surgery - Immunizations Hx Diphtheria, Pertussis, Tetanus Vaccination: No Hx Pneumococcal Vaccination: 03/22/12 Review of Systems - Review of Systems Constitutional: Malaise, Recent illness. denies: Chills, Diaphoresis, Fever EENT: denies: Throat pain, Difficulty swallowing Cardiovascular: Dyspnea, Lightheaded. denies: Palpitations Respiratory: Cough, Short of breath, Wheezing Gastrointestinal: Abdominal pain, Nausea, Poor appetite, Poor fluid intake. denies: Diarrhea, Vomiting, Blood streaked bowels, Black stools, Rectal bleeding Genitourinary: denies: Dysuria, Flank pain, Hematuria Musculoskeletal: denies: Muscle pain Skin: denies: Rash Hematologic/Lymphatic: denies: Easy bruising Neurological/Psychological: Weakness. denies: Dementia, Seizure, Lost consciousness, Headaches, Speech impairment, Numbness, Suicidal ideation -: Yes All other systems reviewed and negative Physical Exam - Vital signs Vitals: Temp Pulse Resp BP Pulse Ox 97.9 F 80 24 H 135/95 H 97 11/18/18 07:46 11/18/18 07:46 11/18/18 07:46 11/18/18 07:46 11/18/18 07:46 - Notes Notes: PHYSICAL EXAMINATION: GENERAL: Cachectic, no acute distress HEAD: Atraumatic, normocephalic. EYES: Pupils equal round and reactive to light, extraocular movements intact, sclera anicteric, conjunctiva are normal. ENT: Nares patent, oropharynx clear without exudates. Moist mucous membranes. NECK: Normal range of motion, supple without lymphadenopathy LUNGS: Mild wheezing in the upper lung tanner. No accessory muscle use, no increased work of breathing. HEART: Regular rate and rhythm without murmurs ABDOMEN: Mild generalized tenderness with palpation no guarding, no rebound. No masses appreciated. Musculoskeletal: Normal range of motion, no pitting or edema. No cyanosis. NEUROLOGICAL: Cranial nerves grossly intact. Normal speech, normal gait. Normal sensory, motor exams PSYCH: Normal mood, normal affect. SKIN: Warm, Dry, normal turgor, no rashes or lesions noted. Course - Re-evaluation Re-evalutation: Laboratory 11/18/18 11/18/18 11/18/18 10:40 10:40 11:14 WBC 6.1 RBC 4.77 Hgb 14.5 Hct 42.7 MCV 90 MCH 30.3 MCHC 33.9 RDW 14.9 H Plt Count 204 Seg Neutrophils % 50.6 Lymphocytes % 29.7 Monocytes % 13.5 H Eosinophils % 5.5 Basophils % 0.7 Absolute Neutrophils 3.1 Absolute Lymphocytes 1.8 Absolute Monocytes 0.8 Absolute Eosinophils 0.3 Absolute Basophils 0.0 Sodium 138.0 Potassium 4.2 Chloride 103 Carbon Dioxide 26 Anion Gap 9 BUN 19 Creatinine 1.15 Est GFR ( Amer) > 60 Est GFR (Non-Af Amer) > 60 Glucose 96 Calcium 9.3 Total Bilirubin 0.9 Direct Bilirubin 0.4 Neonat Total Bilirubin Not Reportable Neonat Direct Bilirubin Not Reportable Neonat Indirect Bili Not Reportable AST 33 ALT 24 Alkaline Phosphatase 72 Creatine Kinase 45 L CK-MB (CK-2) 0.52 Troponin I < 0.012 Total Protein 7.9 Albumin 4.2 Lipase 221.0 Urine Color Urine Appearance Urine pH Ur Specific [place] Urine Protein Urine Glucose (UA) Urine Ketones Urine Blood Urine Nitrite Urine Bilirubin Urine Urobilinogen Ur Leukocyte Esterase Urine RBC (Auto) Urine Mucus (Auto) Urine Ascorbic Acid 11/18/18 13:32 WBC RBC Hgb Hct MCV MCH MCHC RDW Plt Count Seg Neutrophils % Lymphocytes % Monocytes % Eosinophils % Basophils % Absolute Neutrophils Absolute Lymphocytes Absolute Monocytes Absolute Eosinophils Absolute Basophils Sodium Potassium Chloride Carbon Dioxide Anion Gap BUN Creatinine Est GFR ( Amer) Est GFR (Non-Af Amer) Glucose Calcium Total Bilirubin Direct Bilirubin Neonat Total Bilirubin Neonat Direct Bilirubin Neonat Indirect Bili AST ALT Alkaline Phosphatase Creatine Kinase CK-MB (CK-2) Troponin I Total Protein Albumin Lipase Urine Color YELLOW Urine Appearance CLEAR Urine pH 8.0 Ur Specific [place] 1.049 Urine Protein NEGATIVE Urine Glucose (UA) NEGATIVE Urine Ketones NEGATIVE Urine Blood NEGATIVE Urine Nitrite NEGATIVE Urine Bilirubin NEGATIVE Urine Urobilinogen NEGATIVE Ur Leukocyte Esterase NEGATIVE Urine RBC (Auto) 3 Urine Mucus (Auto) RARE Urine Ascorbic Acid NEGATIVE Chest X-Ray 11/18/18 08:53 IMPRESSION: NO ACUTE RADIOGRAPHIC FINDING IN THE CHEST. Abdomen/Pelvis CT 11/18/18 10:02 IMPRESSION: No acute findings. IMPRESSION: Multiple areas of lower lobe subsegmental airway mucus plugging, right greater than left. No acute consolidation or pleural effusion. Chest CT 11/18/18 10:02 IMPRESSION: No acute findings. IMPRESSION: Multiple areas of lower lobe subsegmental airway mucus plugging, right greater than left. No acute consolidation or pleural effusion. Temp Pulse Resp BP Pulse Ox 98.9 F 80 15 157/109 H 96 11/18/18 14:55 11/18/18 07:46 11/18/18 14:39 11/18/18 14:40 11/18/18 14:39 11/18/18 14:22 Patient reports feeling better after receiving IV fluids, Zofran. Patient was provided copies of his imaging and lab work that were performed today. 11/19/18 13:04 11/19/18 13:04 58year-old male presents with multiple vague complaints including abdominal pain, productive cough, shortness of breath, chest tightness. Vital signs reviewed and patient is hypertensive but admits to not taking his blood pressure medication today. His home meds were provided for him. CBC is without leukocytosis or anemia. CMP shows no significant electrolyte abnormality. Urinalysis not consistent with urinary tract infection. CT of the abdomen and pelvis were obtained and showed no acute process it does show some lower lobe mucous plugging which is not new for the patient. After receiving breathing treatments he does report improvement of his shortness of breath. Patient is able to tolerate food and fluids prior to discharge. Patient was evaluated and treated as appropriate for the patient's presenting symptoms and complaint, with consideration of any critical or life threatening conditions that may be associated with their obtained history and exam as noted above. All results were discussed with patient. Patient provided the opportunity to ask questions, and express concerns. Patient was educated on treatments based on their presumed diagnosis as noted above. At this time we will discharge the patient with return precautions and follow-up recommendations. Verbal discharge instructions given a the bedside. Medication warnings reviewed. Patient is in agreement with this plan and has verbalized understanding of return precautions. After careful consideration I feel that that patient can be safely discharged from the emergency department, they were advised to followup with a primary care physician in 2-3 days. Dictation on this chart was performed using voice recognition software and may result in unintended grammatical, spelling, syntax or errors. - Vital Signs Vital signs: Temp Pulse Resp BP Pulse Ox 98.9 F 80 15 157/109 H 96 11/18/18 14:55 11/18/18 07:46 11/18/18 14:39 11/18/18 14:40 11/18/18 14:39 - Laboratory Result Diagrams: 11/18/18 11:14 11/18/18 10:40 Laboratory results interpreted by me: 11/18/18 11/18/18 10:40 11:14 RDW 14.9 H Monocytes % 13.5 H Creatine Kinase 45 L - Diagnostic Test Radiology reviewed: Image reviewed, Reports reviewed - EKG Interpretation by Me EKG shows normal: Sinus rhythm Rate: Normal Rhythm: NSR Voltage: Consistant with LVH - T wave inversion in V4. Q waves seen in V1 and V2 were present on 07/25/2018. Discharge - Discharge Clinical Impression: Malaise and fatigue, Nausea COPD (chronic obstructive pulmonary disease) Qualifiers: COPD type: unspecified COPD Qualified Code(s): J44.9 - Chronic obstructive pulmonary disease, unspecified Hypertension Qualifiers: Hypertension type: unspecified Qualified Code(s): I10 - Essential (primary) hypertension Abdominal pain Qualifiers: Abdominal location: generalized Qualified Code(s): R10.84 - Generalized abdominal pain Condition: Good Disposition: HOME, SELF-CARE Instructions: Abdominal Pain ([facility]), Antinausea Medication ([facility]) Additional Instructions: Follow up with your [id number] hours for further care or return to the ED IMMEDIATELY if symptoms worsen or you have any concerns. If you cannot afford to follow up with your primary care physician a list of low cost clinics have been provided at the end of your discharge papers as well. Most prescribed medications have multiple side effects. The safest thing to do is when filling your prescription speak to your pharmacist regarding possible interactions with your normal home medications and over the counter medications such as Ibuprofen, Tylenol, Benadryl. If you experience any symptoms that cause you discomfort or concern you should discontinue the medication immediately and return to the emergency room or call your primary care physician. Forms: Elevated Blood Pressure Referrals: SRAVAN CEJA MD [NO LOCAL MD] - Follow up tomorrow
[2018-11-18 11:25] LABS: ABSOLUTE EOSINOPHILS # (AUTO) 0.3 10^3/uL (0.0-0.6); ABSOLUTE LYMPHOCYTES (AUTO) 1.8 10^3/uL (0.5-4.7); ABSOLUTE MONOCYTES (AUTO) 0.8 10^3/uL (0.1-1.4); ABSOLUTE NEUT (AUTO) 3.1 10^3/uL (1.7-8.2); BASOPHILS % (AUTO) 0.7 % (0-2); EOSINOPHILS % (AUTO) 5.5 % (0-6); HEMATOCRIT 42.7 % (37.9-51.0); HEMOGLOBIN 14.5 g/dL (13.5-17.0); LYMPHOCYTES % (AUTO) 29.7 % (13-45); MEAN CORPUSCULAR HEMOGLOBIN 30.3 pg (27.0-33.4); MEAN CORPUSCULAR HGB CONC 33.9 g/dL (32.0-36.0); MEAN CORPUSCULAR VOLUME 90 fl (80-97); MONOCYTES % (AUTO) 13.5 % (3-13); PLATELET COUNT 204 10^3/uL (150-450); RED BLOOD COUNT 4.77 10^6/uL (4.35-5.55); RED CELL DISTRIBUTION WIDTH 14.9 % (11.5-14.0); SEGMENTED NEUTROPHILS % (AUTO) 50.6 % (42-78); TOTAL CELLS COUNTED % (AUTO) 100 %; WHITE BLOOD COUNT 6.1 10^3/uL (4.0-10.5)
[2018-11-18 11:31] LABS: ALANINE AMINOTRANSFERASE 24 U/L (21-72); ALBUMIN 4.2 g/dL (3.5-5.0); ALKALINE PHOSPHATASE 72 U/L (38-126); ANION GAP 9 (5-19); ASPARTATE AMINO TRANSFERASE 33 U/L (17-59); BILIRUBIN,DIRECT 0.4 mg/dL (0.0-0.4); BILIRUBIN,TOTAL 0.9 mg/dL (0.2-1.3); BLOOD UREA NITROGEN 19 mg/dL (7-20); CALCIUM 9.3 mg/dL (8.4-10.2); CARBON DIOXIDE 26 mmol/L (22-30); CHLORIDE 103 mmol/L (98-107); CREATINE KINASE 45 U/L (55-170); GLUCOSE 96 mg/dL (75-110); POTASSIUM 4.2 mmol/L (3.6-5.0); TOTAL PROTEIN 7.9 g/dL (6.3-8.2)
[2018-11-18 11:41] LABS: CREATINE KINASE MB 0.52 ng/mL (<4.55)
[2018-11-18 11:46] LABS: TROPONIN I < 0.012 ng/mL
--- NOTE | 2018-11-18 12:30 | RADIOLOGY REPORT (SQ) ---
EXAM DESCRIPTION: CT CHEST WITH; CT ABD/PELVIS WITH IV ONLY COMPLETED DATE/TIME: 11/18/2018 11:58 am REASON FOR STUDY: Chest and abdominal pain CONTRAST TYPE AND DOSE: contrast/concentration: Isovue 350.00 mg/ml; Total Contrast Delivered: 61.0 ml; Total Saline Delivered: 25.4 ml RENAL FUNCTION: GFR > 60. COMPARISON: 06/29/2017 and 10/17/2015 RADIATION DOSE: CT Rad equipment meets quality standard of care and radiation dose reduction techniq ues were employed. CTDIvol: 4.8 mGy. DLP: 607 mGy-cm. mGy. TECHNIQUE: CT scan of the abdomen and pelvis performed with intravenous and oral contrast using gene julio cesar scanning technique with dynamic intravenous contrast injection. Images reviewed with lung, soft tissue and bone windows. Reconstructed coronal and sagittal MPR images reviewed. Delayed images for evaluation of the urinary system also acquired and evaluated. All images stored on PACS. All CT scanners at this facility use dose modulation, iterative reconstruction, and/or weight based d osing when appropriate to reduce radiation dose to as low as reasonably achievable (ALARA). [facility]: Dose Right [facility]: SureCare [facility]: Dose Right [facility]: Teradose 4D [facility]: SUPR FINDINGS: LIVER: Normal size. No masses. No dilated ducts. SPLEEN: Normal size. No focal lesions. PANCREAS: No masses. No significant calcifications. No adjacent inflammation or peripancreatic flui d collections. Pancreatic duct not dilated. GALLBLADDER: No identified stones by CT criteria. No inflammatory changes to suggest cholecystitis. ADRENAL GLANDS: No significant masses or asymmetry. RIGHT KIDNEY AND URETER: No solid masses. Similar upper pole cyst. No significant calcifications. No hydronephrosis or hydroureter. LEFT KIDNEY AND URETER: No solid masses. No significant calcifications. No hydronephrosis or hydr oureter. AORTA AND VESSELS: No aneurysm. No dissection. Renal arteries, SMA, celiac without stenosis. RETROPERITONEUM: No retroperitoneal adenopathy, hemorrhage or masses. LARGE AND SMALL BOWEL: No dilatation. No masses. No wall thickening. APPENDIX: Normal. ABDOMINAL WALL: No hernia or masses. PERITONEAL CAVITY: No free air. No free fluid. No peritoneal implants or masses. PELVIS: No mass or free fluid. Normal bladder. BONES: No significant or acute findings. OTHER: No other significant finding. IMPRESSION: No acute findings. TECHNICAL DOCUMENTATION: JOB ID: [id number] Quality ID # [id number]: Final reports with documentation of one or more dose reduction techniques (e.g., Au tomated exposure control, adjustment of the mA and/or kV according to patient size, use of iterative reconstruction technique) 2010 [employer]- All Rights Reserved TECHNIQUE: CT scan of the chest performed using helical scanning technique with dynamic intravenous contrast injection. Images reviewed with lung, soft tissue and bone windows. Reconstructed coronal a nd sagittal MPR images reviewed. All images stored on PACS. All CT scanners at this facility use dose modulation, iterative reconstruction, and/or weight based d osing when appropriate to reduce radiation dose to as low as reasonably achievable (ALARA). [facility]: Dose Right [facility]: CareDose [facility]: Dose Right [facility]: Teradose 4D [facility]: SUPR RADIATION DOSE: CT Rad equipment meets quality standard of care and radiation dose reduction techniq ues were employed. CTDIvol: 4.8 mGy. DLP: 607 mGy-cm. . LIMITATIONS: None. FINDINGS: AXILLAE: No adenopathy. CHEST WALL: No masses. No subcutaneous air. LUNGS: Multiple areas of lower lobe subsegmental airway mucus plugging, right greater than left. No acute consolidation or pleural effusion. Similar emphysema and chronic interstitial changes. Stable nodularity in both apices, some partially calcified. No pneumothorax. PLEURA: No effusions. No calcifications. THYROID: No masses or significant asymmetry. HILAR AND MEDIASTINAL STRUCTURES: No identified masses or abnormal nodes. AORTA AND GREAT VESSELS: No aneurysm. No dissection. PULMONARY ARTERIES: No identified pulmonary emboli. Study not optimized for the pulmonary arteries. HEART: No pericardial effusion. Moderate coronary calcifications. HARDWARE AND LIFELINES: None. BONES: No significant finding. OTHER: No other significant finding. IMPRESSION: Multiple areas of lower lobe subsegmental airway mucus plugging, right greater than left . No acute consolidation or pleural effusion. Reading location - IP/workstation name: [email or web address]
--- NOTE | 2018-11-18 12:30 | RADIOLOGY REPORT (SQ) ---
EXAM DESCRIPTION: CT CHEST WITH; CT ABD/PELVIS WITH IV ONLY COMPLETED DATE/TIME: 11/18/2018 11:58 am REASON FOR STUDY: Chest and abdominal pain CONTRAST TYPE AND DOSE: contrast/concentration: Isovue 350.00 mg/ml; Total Contrast Delivered: 61.0 ml; Total Saline Delivered: 25.4 ml RENAL FUNCTION: GFR > 60. COMPARISON: 06/29/2017 and 10/17/2015 RADIATION DOSE: CT Rad equipment meets quality standard of care and radiation dose reduction techniq ues were employed. CTDIvol: 4.8 mGy. DLP: 607 mGy-cm. mGy. TECHNIQUE: CT scan of the abdomen and pelvis performed with intravenous and oral contrast using gene julio cesar scanning technique with dynamic intravenous contrast injection. Images reviewed with lung, soft tissue and bone windows. Reconstructed coronal and sagittal MPR images reviewed. Delayed images for evaluation of the urinary system also acquired and evaluated. All images stored on PACS. All CT scanners at this facility use dose modulation, iterative reconstruction, and/or weight based d osing when appropriate to reduce radiation dose to as low as reasonably achievable (ALARA). [facility]: Dose Right [facility]: SureCare [facility]: Dose Right [facility]: Teradose 4D [facility]: WorkThink FINDINGS: LIVER: Normal size. No masses. No dilated ducts. SPLEEN: Normal size. No focal lesions. PANCREAS: No masses. No significant calcifications. No adjacent inflammation or peripancreatic flui d collections. Pancreatic duct not dilated. GALLBLADDER: No identified stones by CT criteria. No inflammatory changes to suggest cholecystitis. ADRENAL GLANDS: No significant masses or asymmetry. RIGHT KIDNEY AND URETER: No solid masses. Similar upper pole cyst. No significant calcifications. No hydronephrosis or hydroureter. LEFT KIDNEY AND URETER: No solid masses. No significant calcifications. No hydronephrosis or hydr oureter. AORTA AND VESSELS: No aneurysm. No dissection. Renal arteries, SMA, celiac without stenosis. RETROPERITONEUM: No retroperitoneal adenopathy, hemorrhage or masses. LARGE AND SMALL BOWEL: No dilatation. No masses. No wall thickening. APPENDIX: Normal. ABDOMINAL WALL: No hernia or masses. PERITONEAL CAVITY: No free air. No free fluid. No peritoneal implants or masses. PELVIS: No mass or free fluid. Normal bladder. BONES: No significant or acute findings. OTHER: No other significant finding. IMPRESSION: No acute findings. TECHNICAL DOCUMENTATION: JOB ID: [id number] Quality ID # [id number]: Final reports with documentation of one or more dose reduction techniques (e.g., Au tomated exposure control, adjustment of the mA and/or kV according to patient size, use of iterative reconstruction technique) 2010 [employer]- All Rights Reserved TECHNIQUE: CT scan of the chest performed using helical scanning technique with dynamic intravenous contrast injection. Images reviewed with lung, soft tissue and bone windows. Reconstructed coronal a nd sagittal MPR images reviewed. All images stored on PACS. All CT scanners at this facility use dose modulation, iterative reconstruction, and/or weight based d osing when appropriate to reduce radiation dose to as low as reasonably achievable (ALARA). [facility]: Dose Right [facility]: CareDose [facility]: Dose Right [facility]: Teradose 4D [facility]: WorkThink RADIATION DOSE: CT Rad equipment meets quality standard of care and radiation dose reduction techniq ues were employed. CTDIvol: 4.8 mGy. DLP: 607 mGy-cm. . LIMITATIONS: None. FINDINGS: AXILLAE: No adenopathy. CHEST WALL: No masses. No subcutaneous air. LUNGS: Multiple areas of lower lobe subsegmental airway mucus plugging, right greater than left. No acute consolidation or pleural effusion. Similar emphysema and chronic interstitial changes. Stable nodularity in both apices, some partially calcified. No pneumothorax. PLEURA: No effusions. No calcifications. THYROID: No masses or significant asymmetry. HILAR AND MEDIASTINAL STRUCTURES: No identified masses or abnormal nodes. AORTA AND GREAT VESSELS: No aneurysm. No dissection. PULMONARY ARTERIES: No identified pulmonary emboli. Study not optimized for the pulmonary arteries. HEART: No pericardial effusion. Moderate coronary calcifications. HARDWARE AND LIFELINES: None. BONES: No significant finding. OTHER: No other significant finding. IMPRESSION: Multiple areas of lower lobe subsegmental airway mucus plugging, right greater than left . No acute consolidation or pleural effusion. Reading location - IP/workstation name: [email or web address]
[2018-11-18] MEDS ORDERED: METHYLPREDNISOLONE INJ 125 MG/2 ML SDV IV ONE (12:37)
[2018-11-18 13:54] LABS: APPEARANCE,URINE CLEAR; BILIRUBIN,URINE NEGATIVE (NEGATIVE); COLOR,URINE YELLOW; GLUCOSE, URINE NEGATIVE (NEGATIVE); KETONES,URINE NEGATIVE (NEGATIVE); LEUKOCYTE ESTERASE,URINE NEGATIVE (NEGATIVE); NITRITE,URINE NEGATIVE (NEGATIVE); PROTEIN,URINE NEGATIVE (NEGATIVE); URINE SPECIFIC GRAVITY 1.049; UROBILINOGEN,URINE NEGATIVE mg/dL (<2.0)
[2018-11-18] MEDS ORDERED: ONDANSETRON 4 MG TAB.RAPDIS PO ONE (14:20)
[2018-11-18 14:45] VITALS: BP 157/109
--- NOTE | 2018-11-18 19:17 | EKG REPORT ---
SEVERITY:- ABNORMAL ECG - SINUS RHYTHM LOW VOLTAGE IN FRONTAL LEADS PROBABLE LEFT VENTRICULAR HYPERTROPHY ANTERIOR Q WAVES, POSSIBLY DUE TO LVH ABNORMAL T, CONSIDER ISCHEMIA, ANT-LAT LEADS : Confirmed by: Naima Gomez MD 18-Nov-2018 19:17:18
== END 2018-11-18 14:50 | disposition home or self-care (01) ==
LOC: ER 07:41
DX: R10.84 Generalized abdominal pain (principal); R53.81 Other malaise; R53.83 Other fatigue; J44.9 Chronic obstructive pulmonary disease, unspecified; I10 Essential (primary) hypertension; R11.0 Nausea; R10.9 Unspecified abdominal pain; R05 Cough; R06.02 Shortness of breath; M79.10 Myalgia, unspecified site; R07.9 Chest pain, unspecified; F17.210 Nicotine dependence, cigarettes, uncomplicated
CPT/HCPCS: 99406; 99284; 36415; 82553; 82550; 83690; 85025; 80053; 81001; 84484; 71046; 71260; 74177; 93005; 93010; A9270 ×2; J2930; J2405; J7120; J7620; S0119

== ENCOUNTER 2019-01-04 08:50 | Day surgery (SDC) | payer MEDICARE, MEDICAID ==
[2019-01-04] MEDS ORDERED: PROPOFOL INJ 200 MG/20 ML VIAL IV ONE ×2 (11:11→11:22)
[2019-01-04] MEDS ORDERED: PROMETHAZINE HCL INJ 25 MG/1 ML VIAL IV PRN (12:08)
[2019-01-04] MEDS ORDERED: ACETAMINOPHEN 325 MG TABLET PO PRN (12:08)
[2019-01-04] MEDS ORDERED: SIMETHICONE 80 MG TAB.CHEW PO PRN (12:08)
--- NOTE | 2019-01-04 12:28 | Operative Report ---
Operative Report DATE OF SURGERY: 01/04/19 Operative Report: The risks, benefits and alternatives of the procedure including the risk of bleeding, perforation requiring surgery have been explained to the patient in detail and informed consent has been obtained. Patient is taken back to the operating room and placed in a left, lateral decubital position. Timeout was called. Propofol medication is administered. A rectal examination is done which did not reveal any masses, tears or fissures. An Olympus videoscope was introduced into the patient's rectum. The scope was then carefully advanced all the way to the cecum. The cecum was identified by the usual anatomical landmarks including the ileocecal valve as well as the appendiceal office. Photodocumentation is obtained. Scope was then sequentially pulled back via the various segments of the colon including the ascending colon, hepatic flexure, transverse colon, splenic flexure, descending colon and finally into the rectosigmoid portions of the colon. Retroflexion maneuvers performed. The risks benefits and alternatives of the procedure explained to the patient in detail and informed consent is obtained.A GIF Olympus video scope was inserted into the patient's mouth and hypopharynx ,the esophagus is identified intubated and insufflated, the scope was then advanced through the esophagus stomach and duodenum, retroflexion maneuver is done. the esophagus stomach and first and second portions of the duodenum examined. PREOPERATIVE DIAGNOSIS: Weight loss, change in bowel habits POSTOPERATIVE DIAGNOSIS: Gastritis status post biopsy rule out Helicobacter pylori. Random biopsies taken on the right-hand side of the colon rule out collagenous colitis. No polyps noted. Internal hemorrhoids. Diverticulosis without any evidence of diverticulitis OPERATION: Colonoscopy with biopsy. EGD with biopsy SURGEON: ALYSA GOEL ANESTHESIA: LMAC TISSUE REMOVED OR ALTERED: As noted above. COMPLICATIONS: None. ESTIMATED BLOOD LOSS: None. INTRAOPERATIVE FINDINGS: As noted above. PROCEDURE: Patient tolerated the procedure well. No immediate postprocedure complications are noted. Patient is discharged in good condition. Discharge date 01/04/2019. Discharge diet: Regular. Discharge activity: Regular. 2 to 3-week follow-up to discuss findings. Patient is instructed to call the office or proceed to the emergency room should there be any further problems or questions. Wait on the pathology.
[2019-01-04 13:15] VITALS: BP 127/75
== END 2019-01-04 13:00 | disposition home or self-care (01) ==
LOC: OROUT 08:50
PROVIDERS: ATTEND Internal Medicine Gastroenterology
DX: K29.50 Unspecified chronic gastritis without bleeding (principal); D12.8 Benign neoplasm of rectum; K64.8 Other hemorrhoids; K57.30 Diverticulosis of large intestine without perforation or abscess without bleeding; K21.9 Gastro-esophageal reflux disease without esophagitis; F17.210 Nicotine dependence, cigarettes, uncomplicated; Z79.899 Other long term (current) drug therapy; Z79.51 Long term (current) use of inhaled steroids; R63.4 Abnormal weight loss; Z68.1 Body mass index [BMI] 19.9 or less, adult
CPT/HCPCS: 36415; 84132; 88305 ×2; J2704; 43239; 45380; 813

== ENCOUNTER → 2019-11-30 | Outpatient (CLI) | payer MEDICARE, MEDICAID ==
[2019-11-30 13:36] LABS: ABSOLUTE EOSINOPHILS # (AUTO) 0.1 10^3/uL (0.0-0.6); ABSOLUTE LYMPHOCYTES (AUTO) 1.9 10^3/uL (0.5-4.7); ABSOLUTE MONOCYTES (AUTO) 0.7 10^3/uL (0.1-1.4); ABSOLUTE NEUT (AUTO) 3.9 10^3/uL (1.7-8.2); BASOPHILS % (AUTO) 0.7 % (0-2); EOSINOPHILS % (AUTO) 2.2 % (0-6); HEMATOCRIT 44.1 % (37.9-51.0); HEMOGLOBIN 15.5 g/dL (13.5-17.0); LYMPHOCYTES % (AUTO) 28.6 % (13-45); MEAN CORPUSCULAR HEMOGLOBIN 31.5 pg (27.0-33.4); MEAN CORPUSCULAR HGB CONC 35.1 g/dL (32.0-36.0); MEAN CORPUSCULAR VOLUME 90 fl (80-97); MONOCYTES % (AUTO) 10.2 % (3-13); PLATELET COUNT 244 10^3/uL (150-450); RED BLOOD COUNT 4.91 10^6/uL (4.35-5.55); RED CELL DISTRIBUTION WIDTH 14.4 % (11.5-14.0); SEGMENTED NEUTROPHILS % (AUTO) 58.3 % (42-78); TOTAL CELLS COUNTED % (AUTO) 100 %; WHITE BLOOD COUNT 6.8 10^3/uL (4.0-10.5)
[2019-11-30 13:54] LABS: ALBUMIN 4.8 g/dL (3.5-5.0); ALKALINE PHOSPHATASE 68 U/L (38-126); ANION GAP 10 (5-19); ASPARTATE AMINO TRANSFERASE 35 U/L (17-59); BILIRUBIN,TOTAL 0.8 mg/dL (0.2-1.3); BLOOD UREA NITROGEN 22 mg/dL (7-20); CALCIUM 9.9 mg/dL (8.4-10.2); CARBON DIOXIDE 26 mmol/L (22-30); CHLORIDE 103 mmol/L (98-107); GLUCOSE 85 mg/dL (75-110); POTASSIUM 5.2 mmol/L (3.6-5.0); TOTAL PROTEIN 8.8 g/dL (6.3-8.2)
== END ==
LOC: OD 12:25
PROVIDERS: ATTEND Registered Nurse
DX: R19.5 Other fecal abnormalities (principal); R53.83 Other fatigue
CPT/HCPCS: 36415; 80053; 85025

== ENCOUNTER → 2019-12-04 | Outpatient (CLI) | payer MEDICARE, MEDICAID ==
--- NOTE | 2019-12-04 13:29 | RADIOLOGY REPORT (SQ) ---
EXAM DESCRIPTION: CT CHEST WITHOUT IMAGES COMPLETED DATE/TIME: 12/04/2019 12:56 pm REASON FOR STUDY: J43.2 CENTRILOBULAR EMPHYSEMA J43.2 CENTRILOBULAR EMPHYSEMA COMPARISON: 11/18/2018 TECHNIQUE: CT scan performed of the chest without intravenous contrast. Images reviewed with lung, soft tissue and bone windows. Reconstructed coronal and sagittal MPR images reviewed. All images st ored on PACS. All CT scanners at this facility use dose modulation, iterative reconstruction, and/or weight based d osing when appropriate to reduce radiation dose to as low as reasonably achievable (ALARA). [facility]: Dose Right [facility]: CareDose [facility]: Dose Right [facility]: Teradose 4D [facility]: Smart [employer] RADIATION DOSE: CT Rad equipment meets quality standard of care and radiation dose reduction techniq ues were employed. CTDIvol: 2.9 mGy. DLP: 136 mGy-cm. mGy. LIMITATIONS: No technical limitations. FINDINGS: LUNGS AND PLEURA: Pleural/parenchymal scarring in the upper lobes, partially calcified on the left. Stable, small nodularity in the left upper lobe. Centrilobular emphysematous changes. HILAR AND MEDIASTINAL STRUCTURES: There is several nonspecific mediastinal nodes. HEART AND VASCULAR STRUCTURES: No aneurysm. No pericardial effusion. Coronary artery calcifications are present. UPPER ABDOMEN: No significant findings. Limited exam. THYROID AND OTHER SOFT TISSUES: No masses. No adenopathy. BONES: No significant finding. HARDWARE: None in the chest. OTHER: No other significant findings. IMPRESSION: Pleural/parenchymal scarring. Stable nodularity in the left upper lobe. Centrilobular emphysema. Nonspecific mediastinal lymph nodes. Coronary artery calcifications. No acute changes. TECHNICAL DOCUMENTATION: JOB ID: [id number] Quality ID # [id number]: Final reports with documentation of one or more dose reduction techniques (e.g., Au tomated exposure control, adjustment of the mA and/or kV according to patient size, use of iterative reconstruction technique) 2010 [employer]- All Rights Reserved Reading location - IP/workstation name: [email or web address]
== END ==
LOC: RAD 12:34
PROVIDERS: ATTEND Registered Nurse
DX: J43.2 Centrilobular emphysema (principal)
CPT/HCPCS: 71250

== ENCOUNTER → 2019-12-12 | Outpatient (CLI) | payer MEDICAID, MEDICARE ==
--- NOTE | 2019-12-12 10:23 | ST Modified Barium Swallow ---
Recommendation - Recommendations Recommendations: SUMMARY: Patient presented with residuals in pyriforms after swallow that increase risk for aspiration and cleared only with liquid wash and dry swallow. Patient denied being able to sense residuals which makes more difficult to apply strategies when needed. 1. Follow up with Watch Adjuster, Deysi AGRAWAL. Pulmonology may want to discuss impact of osteophyte and refer to neurosurgeon if appropriate. May also want to manage with use of dysphagia strategies. 2. Pulmonology may consider referral to speech therapy for training in use of strategies including small bites & sips, alternating bites and sips, dry swallow, effortful swallow. 3. Follow up with GI doctor (patient reports seeing in past and being given prescription for "stomach medicine" that he was unable to fill as insurance did not cover). Medical Diagnoses - Medical Diagnoses Medical Diagnosis Description & ICD-10 Code(s): R13.10 Dysphagia Other Medical Diagnoses/Co-Morbidities: Patient reports high blood pressure, "stomach problems" (unable to clarify type), and COPD. Review of medical record available indicates history of gastritis, diverticulosis, right side colon inflammation, and rectal polyp. As of 11/2018, 20 pound weight loss was documented. - ICD-10 Tx Diagnosis Coding (1) Dysphagia ICD-10 Code(s): R13.10 - DYSPHAGIA, UNSPECIFIED (3) Dysphagia, pharyngeal phase ICD-10 Code(s): R13.13 - DYSPHAGIA, PHARYNGEAL PHASE (4) Dysphagia, oropharyngeal phase ICD-10 Code(s): R13.12 - DYSPHAGIA, OROPHARYNGEAL PHASE ST Modified Barium Swallow - General Date: 12/12/19 Referring Physician: Deysi AGRAWAL Risks/Precautions: Aspiration Date of Onset: 11/13/19 Reason for Referral: dysphagia - History History obtained from: Patient -: Medical - Patient reported "been having problems" and reports "the other week couldn't hardly swallow". He reported "feel it come back up" and endorses food moving up and back down. He reports problem was worse initially and that he also had a sore, hurt neck at the time. He reports losing 7 pounds in last 2 months. However patient also reporting 3/5 abdominal pain and reports this is frequent occurrence. - Functional Status Prior Functional Status: INDEPENDENT: feeding Current Functional Limitations: feeding - Subjective Patient/caregiver goal(s): safe swallow, r/o aspiration Cognitive-Linguistic Function: Functional Current Nutritional Means: PO Current PO diet: Regular Current symptoms: Weight loss, Poor intake, c/o Globus sensation Pain: Patient reports, 3/5 - Objective Assessment: Upright, Left Lateral - Food Trials Used Food trials used: Thin liquids, Pureed, Soft solids The patient: Was Able to Self Feed - Oral-Motor Skills Dentition: Partial - Assessment Oral prep: Mildly Impaired - lengthy chewing however likely influenced by dentition, mastication adequate for consistencies observed Labial closure: Adequate - Pharyngeal Stage Initiation of Pharyngeal Stage Reflex: Normal Decreased laryngeal elevation: Yes Reduced Velopharyngeal Closure: no Reduced pressure generation: Yes reduced tongue-based retraction: Yes Pre-swallow pooling in valleculae: Mild Pre-Swallow pooling in pyriforms: None Reduced pharyngeal peristalsis/contraction: Yes Multiple Swallows with: Ineffective Clearance - solids cleared with dry swallow and liquid wash Post-swallow residulas vallecular: None Post-Swallow residuals in pyriforms: Moderate Post-Swallow Residuals: Posterior pharyngeal wall - with solids - Esophageal Stage Cricopharyngeal Function: Normal Cervical Osteophytes noted: Yes - may be impacting swallow and reducing clearance; see radiology report for details - Fall Risk Assessment Medications/Conditions that increase fall risks include: Antidepressants, sedatives, anti-arrhythmic, diuretic, benzodiazipenes, neuroleptics. BP regulation problems, cardiac problems, balance or gait deficits, neurological problems. Is patient considered at risk for falls: no Fall Risk Actions Taken: No action needed - Behavioral Observations During evaluation process patient: was pleasant, was cooperative, able to answer questions - Treatment / Educational Needs: Treatment/Education Needs: Treatment consisted of patient education on the role of the Speech Pathologist. Patient's plan of care and golas were communicated as well as scheduling and attendance policies. Recommendations for initial home program were shared. Patient demonstrated understanding and verbalized agreement. Initial home program recommendations: Recommended small bites & sips, alternating bites and sips. Verbal and written education provided, planer mill grader provided verbal education several times until patient able to teach-back alternating bites and sips. - Impression/Summary Laryngeal Penetration: No Tracheal Aspiration: no Patient presents with: Oral stage dysphagia, Pharyngeal stage dysph., Oral- Pharyngeal dysph., Mild-Moderate Risk of Aspiration: Severe Risk of nutritional compromise: Severe - Recommendations Solid diet recommendations: Regular Liquid Diet Modification: Thin Strict aspiration precautions: Yes Pt/Family education and followup with MD: Yes Dysphagia therapy with CURATOR: yes Recommended techniques: Dry Swallow After Bite, Small Bites and Sips, Alternate Bites/Sips Supervision: Independent Information, Precautions and Recommendations: Patient (Written), Patient (Verbal) - Plan of Care Total timed minutes: 20 POC Procedures/Codes: pt/family education, MBSS ([id number]) Strategies to optimize patient understanding include:: ongoing assessment of educational needs, implementation of educational strategies, and re-education. - - -: Thank you for the opportunity to work with this patient and his/her family. Should you have any questions about this patient's plan or progress, I can be reached at [phone].
--- NOTE | 2019-12-12 11:00 | RADIOLOGY REPORT (SQ) ---
EXAM DESCRIPTION: COOKIE SWALLOW IMAGES COMPLETED DATE/TIME: 12/12/2019 10:07 am REASON FOR STUDY: DYSPHAGIA R13.10 DYSPHAGIA, UNSPECIFIED CHOKING, GLOBUS SENSATION COMPARISON: None. TECHNIQUE: Videofluoroscopic swallowing examination was performed in conjunction with speech patholo gy. Videofluoroscopic imaging was obtained and reviewed and these are the findings: RADIATION DOSE: 1 minutes 22 seconds of fluoroscopy was used. 1 images saved to PACS. LIMITATIONS: None FINDINGS: The patient was brought into the fluoro room and placed upright on a modified barium swall ow chair. The patient was then given multiple consistencies mixed with barium to swallow under live fluoroscopic video guidance. According to the Speech Pathologist there was no penetration or aspirat ion. Large cervical osteophytes at the C4 through the C6 levels causing significant impression upon the proximal posterior esophagus leading to post swallow residual contrast within the Piriforms. IMPRESSION: NO EVIDENCE OF PENETRATION OR ASPIRATION. LARGE CERVICAL OSTEOPHYTES CAUSING MASS EFFEC T AGAINST THE PROXIMAL ESOPHAGUS. PLEASE SEE SPEECH PATHOLOGIST REPORT FOR OTHER FINDINGS AND RECOMME NDATIONS. COMMENT: Quality ID [id number]: Final reports for procedures using fluoroscopy that document radiation exp osure indices, or exposure time and number of fluorographic images (if radiation exposure indices are not available) TECHNICAL DOCUMENTATION: JOB ID: [id number] 2010 [employer]- All Rights Reserved Reading location - IP/workstation name: [email or web address] [id number]
== END ==
LOC: RAD 09:15
PROVIDERS: ATTEND Registered Nurse
DX: R13.12 Dysphagia, oropharyngeal phase (principal)
CPT/HCPCS: 74230

== ENCOUNTER 2020-05-15 00:26 | Emergency (ER) | payer MEDICARE, MEDICAID ==
[2020-05-15] MEDS ORDERED: ASPIRIN 81 MG TABLET, CHEWABLE PO ONE (00:43)
[2020-05-15] MEDS ORDERED: TENECTEPLASE INJ 50 MG KIT IV ONE ×2 (00:49→15:42)
[2020-05-15] MEDS ORDERED: CLOPIDOGREL BISULFATE 300 MG TABLET PO ONE (00:49)
[2020-05-15] MEDS ORDERED: ONDANSETRON HCL INJ/PF 4 MG/2 ML SDV IV ONE (00:50)
[2020-05-15] MEDS ORDERED: MORPHINE SULFATE 10 MG/ML INJ IV ONE (00:50)
[2020-05-15 00:56] LABS: HEMATOCRIT 39.9 % (37.9-51.0); HEMOGLOBIN 13.9 g/dL (13.5-17.0); MEAN CORPUSCULAR HEMOGLOBIN 31.3 pg (27.0-33.4); MEAN CORPUSCULAR HGB CONC 34.8 g/dL (32.0-36.0); MEAN CORPUSCULAR VOLUME 90 fl (80-97); PLATELET COUNT 271 10^3/uL (150-450); RED BLOOD COUNT 4.43 10^6/uL (4.35-5.55); RED CELL DISTRIBUTION WIDTH 14.8 % (11.5-14.0); WHITE BLOOD COUNT 9.3 10^3/uL (4.0-10.5)
[2020-05-15] MEDS: NITROGLYCERIN 0.4 MG/TAB 25 TAB/BOTTLE SL PRN ×2 (01:04→01:11)
[2020-05-15 01:10] LABS: INTERNATIONAL RATION (INR) 0.95; PROTHROMBIN TIME 12.9 SEC (11.4-15.4)
[2020-05-15 01:11] LABS: PARTIAL THROMBOPLASTIN TIME 24.8 SEC (23.5-35.8)
--- NOTE | 2020-05-15 01:13 | ER Document Report ---
ED General - General Stated Complaint: CHEST PAINS SHORT OF BREATH Primary Care Provider: ZACK MARTIN FNP-C [ALLIED HEALTH PROFESSIONAL] - Follow up as needed Notes: 59-year-old male with hypertension and smoking history presents with sudden onset severe chest pain retrosternal associated with diaphoresis and vomiting. Patient denies any cardiac history, prior episodes, injuries, prior stroke, prior intracranial hemorrhage, brain cancer, current bleeding symptoms, anticoagulation. Unable to give full history given severe crushing chest pain. TRAVEL OUTSIDE OF THE [place] IN LAST 30 DAYS: No - Related Data Allergies/Adverse Reactions: DIAMOND Inhibitors Allergy (Severe, Verified 01/04/19 09:12) Angioneurotic Edema lisinopril Allergy (Severe, Verified 01/04/19 09:12) Angioneurotic Edema Past Medical History - General Information source: Patient - Social History Smoking Status: Current Every Day Smoker Family History: Reviewed & Not Pertinent - Past Medical History Cardiac Medical History: Reports: Hx Hypertension Denies: Hx Coronary Artery Disease, Hx Heart Attack Pulmonary Medical History: Reports: Hx Asthma, Hx COPD, Hx Pneumonia Denies: Hx Bronchitis Neurological Medical History: Denies: Hx Seizures Renal/ Medical History: Denies: Hx Peritoneal Dialysis GI Medical History: Reports: Hx Gastroesophageal Reflux Disease, Hx Irritable Bowel Musculoskeletal Medical History: Denies Hx Arthritis Psychiatric Medical History: Denies: Hx Depression Past Surgical History: Reports: Hx Abdominal Surgery - Immunizations Hx Diphtheria, Pertussis, Tetanus Vaccination: No Hx Pneumococcal Vaccination: 03/22/12 Review of Systems - Review of Systems -: Yes ROS unobtainable due to patient's medical condition Physical Exam - Vital signs Vitals: Resp 29 H 05/15/20 00:40 - Notes Notes: PHYSICAL EXAMINATION: GENERAL: Diaphoretic middle-aged man in severe pain clutching chest and vomiting into emesis bag HEAD: Atraumatic, normocephalic. EYES: Pupils equal round and appropriate constriction, sclera anicteric, conjunctiva are normal. ENT: nares patent, moist mucous membranes. NECK: Normal range of motion, supple without lymphadenopathy LUNGS: Breath sounds clear to auscultation bilaterally and equal. No wheezes rales or rhonchi. HEART: Regular rate and rhythm without murmurs ABDOMEN: Soft, nontender, no guarding, no masses, no CVAT EXTREMITIES: Normal range of motion, no pitting or edema. No cyanosis. NEUROLOGICAL: Awake, alert, conversing appropriately, moves all extremities spontaneously. SKIN: Warm, Dry, normal turgor, no rashes or lesions noted. Course - Re-evaluation Re-evalutation: 05/15/20 01:13 Patient with classic presentation of TN with tombstoning on anterior leads of EKG consistent with acute STEMI. Patient's vitals normal, no respiratory distress, alert and protecting airway, no contraindications for TPA or other anticoagulation. I spoke to patient about the risks of serious and fatal bleeding with patient does not meet any exclusion criteria for TPA at this time. I have reviewed the risks and benefits of administration of TPA with the family at the bedside. We have reviewed the risks of intracranial bleed and the possible benefits of increased functional independence at 90 days with the use of TPA. At about the benefits of giving, also discussed the alternate which was not giving it, and patient consented to TPA. Patient placed on monitor with defibrillator pads, given aspirin, Plavix loading dose, tenecteplase, heparin bolus, and nitroglycerin sublingual. Also given morphine and Zofran for symptomatic treatment. Contacted [facility] STEMI line I discussed case with agriculture department chair Dr. Parker who has accepted patient for stat transfer. Patient's pain has significantly improved after morphine and nitro. Patient requested that I call and update his daughter which I did. Helicopter en route for transfer. 05/15/20 01:38 Crew here for air transfer to [facility]. Patient's vitals remained stable. Patient remains appropriate for transfer. Gave patient's daughter's information to EMS that she requested call when she arrives at [facility]. - Vital Signs Vital signs: Temp Pulse Resp BP Pulse Ox 97.6 F 13 109/86 H 100 05/15/20 01:10 05/15/20 01:26 05/15/20 01:26 05/15/20 01:26 - Laboratory Results Result Diagrams: 05/15/20 00:47 05/15/20 00:47 Laboratory Results Interpreted: 05/15/20 05/15/20 05/15/20 00:44 00:47 00:47 RDW 14.8 H Creatinine 1.54 H Est GFR ( Amer) 56 L Est GFR (MDRD) Non-Af 46 L Glucose 128 H POC Glucose 123 H Critical Laboratory Results Reviewed: No Critical Results - Radiology Results Critical Radiology Results Reviewed: No Critical Results - EKG Interpretation by Me Additional EKG results interpreted by me: 05/15/20 01:22 Sinus rhythm, marked ST elevations in anterior leads, normal intervals Critical Care Note - Critical Care Note Total time excluding time spent on procedures (mins): 35 - Spent time stabilizing and treating STEMI patient and consulting with specialists Discharge - Discharge Clinical Impression: STEMI (ST elevation myocardial infarction) Qualifiers: Involved coronary artery: LAD coronary artery Qualified Code(s): I21.02 - ST elevation (STEMI) myocardial infarction involving left anterior descending coronary artery Condition: Critical [facility]position: [facility] Referrals: ZACK MARTIN FNP-C [ALLIED HEALTH PROFESSIONAL] - Follow up as needed
[2020-05-15] MEDS ORDERED: HEPARIN SOD (PORCINE) 1,000 UNIT/ML 10 ML VIAL IV ONE (01:15)
[2020-05-15 01:29] LABS: ANION GAP 13 (5-19); BLOOD UREA NITROGEN 20 mg/dL (7-20); CALCIUM 9.6 mg/dL (8.4-10.2); CARBON DIOXIDE 25 mmol/L (22-30); CHLORIDE 104 mmol/L (98-107); CREATINE KINASE 104 U/L (55-170); GLUCOSE 128 mg/dL (75-110); POTASSIUM 4.3 mmol/L (3.6-5.0)
[2020-05-15 01:36] VITALS: BP 109/86
[2020-05-15 01:40] LABS: CREATINE KINASE MB 1.11 ng/mL (<4.55); TROPONIN I 0.024 ng/mL
--- NOTE | 2020-05-15 01:41 | RADIOLOGY REPORT (SQ) ---
CLINICAL INDICATION: Chest Pain r/o NC. TECHNIQUE: A single portable AP view was obtained of the chest at 0105 hours. COMPARISON: November 18, 2018. FINDINGS: The cardiomediastinal silhouette is prominent but stable. The lungs are grossly clear. No evidence of effusion or pneumothorax. Chronic parenchymal lung change.. IMPRESSION: No evidence of active intrathoracic disease. Chronic change, no adverse change
--- NOTE | 2020-05-15 02:02 | EKG REPORT ---
SEVERITY:- DEFECTIVE ECG - PROBALY SINUS RHYTHM.SEVERE BASELINE ARTIFACT RUN OF VENTRICULAR PREMATURE COMPLEXES LEFT ATRIAL ABNORMALITY ANTERIOR INFARCT, ACUTE BORDERLINE PROLONGED QT INTERVAL : Confirmed by: Naima Gomez MD 15-May-2020 02:02:05
[2020-05-15] MEDS ORDERED: ASPIRIN 81 MG TABLET, CHEWABLE ONE (15:42)
[2020-05-15] MEDS ORDERED: NITROGLYCERIN 0.4 MG/TAB 25 TAB/BOTTLE ONE (15:42)
[2020-05-15] MEDS ORDERED: CLOPIDOGREL BISULFATE 300 MG TABLET ONE (15:42)
== END 2020-05-15 01:40 | disposition short-term general hospital (02) ==
LOC: ER 00:26
DX: I21.02 ST elevation (STEMI) myocardial infarction involving left anterior descending coronary artery (principal); R07.9 Chest pain, unspecified; R61 Generalized hyperhidrosis; R11.10 Vomiting, unspecified; F17.200 Nicotine dependence, unspecified, uncomplicated; I10 Essential (primary) hypertension
CPT/HCPCS: 93005; 99285; 96374; 96375; 36415; 82553; 82962; 82550; 85027; 85610; 85730; 80048; 84484; 71045; 93010; J3101; A9270 ×3; J1644; J2270; J2405; J3490